=== PATIENT | male | born 1970 | race Caucasian/White ===

== ENCOUNTER 2025-06-12 09:41 | Emergency (ER) | payer OTHER, SELFPAY ==
--- NOTE | ~2025-06-12 | XR_ITS ---
EXAMINATION: XR LUMBOSACRAL SPINE CLINICAL INFORMATION: low back pain COMPARISON: None available. TECHNIQUE: AP and lateral views FINDINGS: Multilevel endplate sclerosis and marginal osteophyte formation throughout the axial skeleton. Levoconvex curvature apex at L2-3. Mild superior endplate compression deformity representing 20% volume loss in the lower thoracic and upper lumbar spine. No acute or equal disruption. No gross malalignment. No lytic or blastic lesions. Facet joint hypertrophy at L4-5 and L5-S1 levels. Vascular calcifications, aorta. XR/XR lumbar spine 2-3V IMPRESSION: Multilevel thoracolumbar spondylosis without acute fracture or gross listhesis. Atherosclerosis disease, aorta. Levoconvex scoliosis versus patient's posture. Electronically signed by: Francesco Medellin MD 06/12/2025 10:28 AM EDT
--- NOTE | ~2025-06-12 | XR_ITS ---
EXAMINATION: XR FOOT, RIGHT CLINICAL INFORMATION: pain, ulcer COMPARISON: None available. TECHNIQUE: AP, lateral, and oblique views of the right foot. FINDINGS: No acute cortical disruption or malalignment. No lytic or blastic lesions. No osteolysis. No subcutaneous emphysema. No metallic or radiopaque foreign body. No joint effusion.. XR/XR foot RT min 3V IMPRESSION: No acute fracture or dislocation. No osteomyelitis based upon x-ray. Electronically signed by: Francesco Medellin MD 06/12/2025 10:29 AM EDT
[2025-06-12 09:54] VITALS: BP 157/75; BP 90/60; PULSE 84; RESP 17; TEMP 36.6; O2SAT 97; BMI 24.7
[2025-06-12 09:58] VITALS: BP 157/75; PULSE 84; RESP 17; TEMP 36.6; O2SAT 97
--- NOTE | 2025-06-12 10:26 | ED.GENADULT ---
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 he comes in after being found walking around [employer] parking lots. PD felt he was shaking. He states he is here due to having to tape his toes to protect them. He has no fevers, he denies ETOH or drug use. He c/o bilateral burning feet to the toes as he walks a lot. He states he has a place to live in [place] and he has access to his medications. He has chronic low back pain but no b/b incontinence and no saddle anesthesia. He states he needs VNA and to see wound care. I told him he should not be taping his toes or skin. All of this has been going on since April complaint: feet pain Onset (ago): month(s) (3) Location: left, right and lower extremity Radiation: non-radiation Severity: mild Quality: burning Pain Consistency: intermittent Relieving factors: none Exacerbating factors: movement Associated symptoms: rash Treatments prior to arrival: none Related Data Allergies Allergy/AdvReac Type Severity Reaction Status Date / Time No Known Allergies Allergy Verified 06/12/25 09:56 Review of Systems Review of Systems: Constitutional : No Fever, No Chills ENT/Mouth : No sore throat, No Rhinorrhea Eyes: No Eye Pain, No Swelling, No Redness Cardiovascular : No Chest Pain, No SOB Respiratory : No Cough, No Sputum Gastrointestinal : No Nausea, No Vomiting, No Diarrhea, No abdominal Pain Genitourinary : No Dysuria, No Hematuria Musculoskeletal : No joint pain, No Myalgias, No Joint Swelling, pos back pain Skin : No Skin Lesions, positive skin rash Neuro : No Weakness, No Numbness, No Headache All other systems reviewed and are negative [facility] Past Medical History Attestation statement: The following information was validated with the patient. Source: old records reviewed Medical History Diabetes HLD (hyperlipidemia) HTN (hypertension) Social History Social History (Updated 06/12/25 @ 11:00 by Nettie Allred DO) Patient Tobacco Use Status: Current everyday Tobacco user Smoked in Last 30 Days: Yes Use of substances other than those prescribed or required for medical reasons: No Advance Directives: Yes Advance Directives Information Provided: Yes Advance Directives on File: No Do you have a plan to hurt others: No Plan Physical Exam ED Vital Signs: Vital Signs - 24 hr 06/12/25 09:54 06/12/25 09:58 06/12/25 12:10 Temperature 97.9 F 97.9 F 98.3 F Pulse Rate 84 84 71 Respiratory Rate 17 17 16 Blood Pressure 157/75 H 157/75 H 132/78 Pulse Oximetry 97 97 97 Oxygen Delivery Method Room Air Room Air Room Air BMI result Body Mass Index 24.7 Appearance: Alert. Oriented X3. No acute distress. Eyes: Pupils equal, round and reactive to light. ENT: Pharynx normal. Neck: Normal inspection. Neck supple. CVS: Normal heart rate and rhythm. Pulses normal. Respiratory: No respiratory distress. Breath sounds normal. Abdomen: Soft and nontender. Skin: Skin warm and dry. Normal skin color. Normal skin turgor. Extremities: No lower extremity edema. toes are only red where tape areas were there is no cellulitis, nails are thickened but no signs of abscess or cellulitis, there are pressure ulcers but no open wounds on both heels, NV intact Neuro: Oriented X 3. No motor deficit. No sensory deficit. 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 He is NV intact, I am going to obtain xrays and basic labs but this seems more social issue. Will involve CM once patient is cleared Differential Diagnosis Differential Diagnoses: The differential diagnosis associated with the presentation includes poor social support, neuropathy, onychomycosis, skin irritation Admission/Observation Consideration of admission/observation: Escalation of care including admission/observation considered does not need inpatient admission ESR and CRP mildly elevated no overt cellulitis will involve CM for VNA at home now refusing VNA - CM letting [facility] know about his decline of services Consult Healthcare Provider Management of the patient was discussed with: Sodium Chlorite Operator Lab Data MDM Lab Attestation statement: I reviewed the patient's lab results. 06/12/25 10:57 06/12/25 10:57 Labs: Lab Results 06/12/25 06/12/25 Range/Units 10:57 12:28 WBC 5.6 (4.8-10.8) X10*3/uL RBC 3.78 L (4.60-5.80) X10*6/uL Hgb 11.8 L (14.0-18.0) g/dl Hct 33.1 L (42.0-52.0) % MCV 87.6 (80.0-98.0) fL MCH 31.2 (27.0-33.0) pg MCHC 35.6 (31.0-36.0) g/dl RDW 12.7 (11.0-16.0) % Plt Count 222 (160-400) X10*3/uL MPV 8.5 L (9.4-12.4) fL Immature Gran % (Auto) 0.2 (0.0-0.4) % Neut % (Auto) 61.1 (45-73) % Lymph % (Auto) 23.4 (20-40) % [place] % (Auto) 13.7 H (2-11) % Eos % (Auto) 0.9 (0-4) % Baso % (Auto) 0.7 (0-2) % Lymph # (Auto) 1.3 (1.2-4.9) X10*3/uL [place] # (Auto) 0.8 (0.1-1.2) X10*3/uL Eos # (Auto) 0.1 (0.0-0.4) X10*3/uL Baso # (Auto) 0.0 (0.0-0.2) X10*3/uL Abs Immat Gran (auto) 0.01 (0.00-0.03) X10*3/uL Absolute Neuts (auto) 3.4 (2.0-8.3) x10*3/uL Absolute Nucleated RBC 0.000 (0.0-0.012) X10*3/uL Nucleated RBC % (auto) 0.0 (0.0-0.2) /100WBC ESR 16 H (0-15) MM/HR Sodium 133 L (135-145) mmol/L Potassium 4.5 (3.3-5.1) mmol/L Chloride 104 (96-108) mmol/L Carbon Dioxide 23 (22-29) mmol/L Anion Gap 11 L (12-20) BUN 11 (9-16) mg/dL Creatinine 0.82 (0.5-1.4) mg/dL Estim Creat Clear Calc 118.3 Estimated GFR > 60 Random Glucose 85 (60-115) mg/dL Calcium 9.5 (8.4-10.2) mg/dL Magnesium 1.9 (1.6-2.6) mg/dL Total Bilirubin 0.6 (0.0-1.0) mg/dL Direct Bilirubin 0.2 (0.0-0.5) mg/dL AST 21 (5-37) U/L ALT 10 (0-40) U/L Alkaline Phosphatase 18 L (39-117) U/L C-Reactive Protein 1.70 H (< or = 0.50) mg/dL Total Protein 6.6 (6.5-8.0) g/dL Albumin 4.2 (3.5-5.0) g/dL Lipase 16 (8-78) U/L Urine Color Yellow Urine Appearance Clear Urine pH 6.5 (5.0-9.0) Ur Specific [place] 1.015 (1.005-1.025) Urine Protein Negative (Neg-Trace) mg/dL Urine Glucose (UA) Negative (Negative) mg/dL Urine Ketones Trace (Negative) mg/dL Urine Blood Small (1+) H (Negative) Urine Nitrite Negative (Negative) Ur Leukocyte Esterase Negative (Negative) Urine RBC 11-20 H (0-2) /HPF Urine WBC 0-5 (0-5) /HPF Ur Squamous Epith Cells 0-2 (0-2) /HPF Urine Bacteria None Seen (None Seen) Hyaline Casts 0-2 (0-2) /LPF Urine Opiates Screen Not Detected (Not Detect) Ur Buprenorphine Scrn Not Detected (Not Detect) ng/mL Ur Oxycodone Screen Not Detected (Not Detect) ng/mL Urine Methadone Screen Not Detected (Not Detect) ng/mL Urine Fentanyl Screen Not Detected (Not Detect) Ur Barbiturates Screen Not Detected (Not Detect) Valproic Acid 85.8 (50.0-100.0) mcg/mL Ur Phencyclidine Scrn Not Detected (Not Detect) Ur Amphetamines Screen Not Detected (Not Detect) U Benzodiazepines Scrn Not Detected (Not Detect) Urine Cocaine Screen Not Detected (Not Detect) U Marijuana (THC) Screen Not Detected (Not Detect) Ethyl Alcohol 11 mg/dL Independent Interpretation I performed an independent interpretation of an: Plain X-Ray (no fx, no osteo) Radiology Impression Discussion of test interpretation with radiology: I have reviewed the radiologist's reading. Independent Historian Clinical information obtained from an independent historian. History obtained from or confirmed by: EMS External Record Review External record reviewed: Outpatient record Social Determinants Patient?s care significantly limited by Social Determinants of Health including: Problems related to primary support group Discharge Plan Discharge Clinical Impression: Onychomycosis, Pain around toenail Low back pain Qualifiers: Chronicity: chronic Back pain laterality: bilateral Sciatica presence: without sciatica Qualified Code(s): M54.50 - Low back pain, unspecified Patient Disposition: Home, Self-Care Instructions: Back Pain (ED) Additional Instructions: xrays show no broken bones but you do have disc disease in your back your labs were reassuring you should follow up with our wound care center for outpatient care of your feet avoid taping them Referrals: [facility] [place] Wound Care Management [Provider Group] Referral Note: call to schedule Print Language: Spanish
[2025-06-12 11:03] LABS: MANUAL DIFF FLAG NO
[2025-06-12 11:06] LABS: Hematocrit 33.1 % (42.0-52.0); Hemoglobin 11.8 g/dl (14.0-18.0); Imm Gran Abs Auto 0.01 X10*3/uL (0.00-0.03); Imm Gran Pct Auto 0.2 % (0.0-0.4); Lymphocytes Absolute Auto 1.3 X10*3/uL (1.2-4.9); Mean Corpuscular HGB Conc 35.6 g/dl (31.0-36.0); Mean Corpuscular Hemoglobin 31.2 pg (27.0-33.0); Mean Corpuscular Volume 87.6 fL (80.0-98.0); NRBC Abs Auto 0.000 X10*3/uL (0.0-0.012); NRBC Pct Auto 0.0 /100WBC (0.0-0.2); Platelet Count 222 X10*3/uL (160-400); Red Blood Count 3.78 X10*6/uL (4.60-5.80); White Blood Count 5.6 X10*3/uL (4.8-10.8)
[2025-06-12 11:25] LABS: Alanine Aminotransferase 10 U/L (0-40); Albumin Level 4.2 g/dL (3.5-5.0); Alkaline Phosphatase 18 U/L (39-117); Anion Gap 11 (12-20); Aspartate Amino Transferase 21 U/L (5-37); Blood Urea Nitrogen 11 mg/dL (9-16); Calcium 9.5 mg/dL (8.4-10.2); Carbon Dioxide 23 mmol/L (22-29); Chloride 104 mmol/L (96-108); Creatinine Clr Calc Pharmacy 118.3; Estimated Glomerular Filt Rate > 60; Lipase 16 U/L (8-78); Magnesium 1.9 mg/dL (1.6-2.6); Potassium 4.5 mmol/L (3.3-5.1); Sodium 133 mmol/L (135-145); Total Protein 6.6 g/dL (6.5-8.0)
[2025-06-12 12:10] VITALS: BP 132/78; PULSE 71; RESP 16; TEMP 36.8; O2SAT 97
--- OUTSIDE RECORDS SUMMARY | 2025-06-12 12:11 | XMS_ITS | Clinical Summary ---
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 Active lancets lancets Test blood sugars twice daily Pt has Settlestyle lite machine 3 Active lancets lancets USE DIRECTED EVERY DAY 4 Active OneTouch Ultra Test test strip USE DIRECTED EVERY DAY 4 Active OneTouch Ultra Test test strip USE DIRECTED EVERY DAY 4 Active acetaminophen (TYLENOL) 500 mg capsule Take 2 Capsules by mouth at bedtime. 4 Active azelastine (ASTELIN) 137 mcg (0.1 %) nasal spray USE 2 SPRAYS IN EACH NOSTRIL TWICE DAILY DIRECTED 4 Active cyclobenzaprine (FLEXERIL) 10 mg tablet Take 1 Tablet by mouth 3 times daily as needed for Muscle spasms for up to 7 days. 4 Active diclofenac (VOLTAREN) 1 % topical gel Apply 4 g topically 4 times daily as needed for Other (arthritis pain). 2 Active divalproex (DEPAKOTE) [address] tablet Take 500 mg by mouth 2 times daily. Active naproxen (NAPROSYN) 500 mg tablet Take 1 Tablet by mouth 2 times daily (with meals) for 10 days. 4 Active QUEtiapine (SEROquel) 300 mg tablet Take 2 Tabs by mouth at bedtime. 6 Active OneTouch Ultra Test test strip USE DIRECTED EVERY DAY 100 strip 1 4 Active lancets (OneTouch Delica Plus Lancet) 33 gauge USE DIRECTED EVERY DAY 100 each 1 5 Active fluticasone propionate (FLONASE) 50 mcg/actuation nasal spray SHAKE LIQUID AND USE 2 SPRAYS IN EACH NOSTRIL EVERY DAY 48 g 3 5 Active simvastatin (ZOCOR) 20 mg tablet TAKE 1 TABLET BY MOUTH AT BEDTIME 90 tablet 1 5 Active lisinopriL (PRINIVIL,ZESTR [place]) 10 mg tablet TAKE 1 TABLET BY MOUTH DAILY 90 tablet 1 5 Active levothyroxine (SYNTHROID, LEVOTHROID) 112 mcg tablet TAKE 1 TABLET BY MOUTH DAILY 90 tablet 1 5 Active albuterol HFA (PROAIR HFA ; PROVENTIL HFA ; VENTOLIN HFA) 90 mcg/actuation inhaler Inhale 2 puffs by mouth every 6 (six) hours if needed for wheezing. 6.7 g 3 5 Active OneTouch Ultra2 Meter misc USE TO TEST BLOOD SUGAR ONCE DAILY 1 each 11 5 Active metFORMIN (GLUCOPHAGE) 500 mg tablet TAKE 1 TABLET BY MOUTH DAILY WITH BREAKFAST 90 tablet 5 Active Active Problems Problem Noted Date Diagnosed Date Other specified anemias 11/06/2022 Bilateral hip joint arthritis 08/28/2022 Thoracic arthritis 08/28/2022 Hypertension 11/26/2020 Type 2 diabetes mellitus ([facility] V24, [facility] V 28) 11/26/2020 Emphysema with chronic bronc hitis ([facility] V24, [facility] V28) 05/25/2011 LOC (loss of consciousness) ([facility] V24, [facility] V28) 05/06/2011 Overview (09/14/2024): Was seen by Diogenes for neuro that diagnosed him with probable syncope. He does not think that the patient has Sz. Schizoaffective disorder ([facility] V24, [facility] V 28) 05/06/2011 Lyme disease 03/19/2011 Overview (09/14/2024): Was treated with doxycycline 100 mg b.i.d. For 30 days, January 2011 Lung mass 03/13/2011 Overview (09/14/2024): PET was negative on 03/2011 High cholesterol 06/15/2008 Bipolar affective ([facility] V24, [facility] V28) Overview (09/14/2024): As of 12/2010 that patient is follow with Dr Paulson and he will take care of his meds including Depakote and Seroquel. Hypothyroidism 05/25/2008 Tobacco use disorder 05/25/2008 Encounters Date Type Department Care Team Description 04/30/2025 12:04 PM EDT - 04/30/2025 6:18 PM EDT Emergency [facility] Emergency [address] [place] [address] Shaheen Dao MD Discharge Disposition: ED Dismiss - Never Arrived from Last 3 Months Immunizations Name Administration Dates Next Due H1N1 Inj Preservative Free 09/25/2009 Influenza Quadrivalent, 0.5m l, preservative free (Fluarix; FluLaval; Fluzone) ages 6mo and older (Afluria) 3yo and older 07/24/2023,06/03/2020,06/11/2018 Influenza trivalent, 0.5mL, preservative free (Fluarix; FluLaval; Fluzone) ages 6mo and older (Afluria) 3 years and older 06/08/2024,06/21/2021,05/16/2017,06/13,06/09/2015,05/11/2014,08/07/2013 ,07/14/2012,09/07/2011,07/31/2010,09/10,07/10/2008 Influenza trivalent, MDCK, 0 .5mL, preservative free (Flucelvax) 6mo and older 06/07/2025 Influenza, Unspecified 06/22/2022,2018,06/11/2018,05/11 Influenza, injectable, quadr ivalent, preservative free, pediatric 06/22/2022 Moderna SARS-CoV-2 COVID-19, mRNA, LNP-S, preservative free 09/12/2021,03/08/2021,02/08/2021 Pneumococcal polysaccharide 23 valent (Pneumovax 23) 2yo and older 01/28/2010 Pneumococcal, Unspecified 05/11/2014 RSV, bivalent, protein subun it RSVpreF, 0.5mL, Preservative Free (ABRYSVO) 60yo and older or 32 through 36 wks of 06/07/2025 Tdap Tetanus diptheria acell ular pertussis (Boostrix; Adacel) 7yo and older 07/03/2019,03/06/2009 Zoster recombinant (Shingrix ) 19yo and older 12/25/2024,10/27/2024 Surgical History Surgery Date Site/Laterality Comments HERNIA REPAIR Left PROCEDURE: HISTORICAL HERNIA REPAIR/ING; COMMENT: 1990 Medical History Medical History Date Comments Lyme arthritis of knee ([facility] V24, [facility] V28) 01/31/2011 DX:Lyme arthritis of knee ([facility]) Bipolar affective ([facility] V 24, [facility] V28) 05/25/2008 DX:Bipolar affective (HCC) Emphysema with chronic bronc hitis ([facility] V24, [facility] V28) 05/25/2011 DX:Emphysema with chronic bronchitis ([facility]) High cholesterol 06/15/2008 DX:High cholest ashleigh Hypothyroidism 05/25/2008 DX:Hypothyroidis m LOC (loss of consciousness) ([facility] V24, [facility] V28) 05/06/2011 DX:LOC (loss of consciousnes s) ([facility]) Historical Medical DX 03/13/2011 DX:Pulmona ry nodule Schizoaffective disorder ( [facility] V24, [facility] V28) 05/06/2011 DX:Schizoaffective disorder ([facility]) Tobacco use disorder 05/25/2008 DX:Tobacco use disorder Hypertension 11/26/2020 DX:Hypertension Type 2 diabetes mellitus ( [facility] V24, [facility] V28) 11/26/2020 DX:Type 2 diabetes mellitus (HCC) Family History Medical History Relation Name Comments Other: seizure d/o Brother 1 cause of undetermined COPD Brother 2 bacterial infec tion lungs Throat cancer Father smoker Asthma Mother COPD Mother respiratory iss ues Other: psychiatric Mother Relation Name Status Comments Brother 1 (Age 50) SZ Brother 2 Alive SZ Brother 3 Alive Brother 4 Alive Brother 5 Alive Brother 6 Alive Father (Age 59) SZ Mother (Age 62) Social History Tobacco Use Types Packs/Day Years Used Date Smoking Tobacco: Every Day Cigarettes 1 43.3 Started: 03/04/1982 Smokeless Tobacco: Never Tobacco Cessation:Ready to Q uit: Not Asked; Counseling Given: Not Answered Alcohol Use Standard Drinks/Week Comments Yes 0 (1 standard drink = 0.6 oz pur e alcohol) Housing Instability Answer Date Recorde d Are you worried that in the next 2 months you may not have stable housing? No 11/15/2024 Food Access & Nutrition Answer Date Rec orded Do you have access to a vari ety of food including fruits and vegetables? Yes 11/15/2024 Health Literacy Answer Date Recorded How often do you need to hav e someone help you when you read instructions, pamphlets, or other written material from your doctor or pharmacy? Never 11/15/2024 Caregiver: How often do you need to have someone help you when you read instructions, pamphlets, or other written material from your doctor or pharmacy? Not on file 11/15/2024 Financial Risk Answer Date Recorded How hard is it for you to pa y for the very basics like food, housing, medical care, and air conditioning / heating? Not very hard 11/15/2024 Transportation Answer Date Recorded Has the lack of transportati on kept you from meetings, work, or from getting things needed for daily living? No Has the lack of transportati on kept you from medical appointments or from getting medications? No 11/15/2024 Social Isolation Answer Date Recorded How often do you feel lonely or isolated from th ose around you? Never 11/15/2024 Food Risk Answer Date Recorded Within the past 12 months we worried whether our food would run out before we got money to buy more. Never true 11/15/2024 Within the past 12 months th e food we bought just didn't last and we didn't have money to get more. Never true 11/15/2024 Dependent Care Answer Date Recorded Do you need help finding or paying for care for your loved ones. For example, housekeeper child care or elderly care for an older adult? No 11/15/2024 Education Answer Date Recorded Do you think completing more education or training, like finishing a GED, going to college, or learning a trade, would be helpful for you? No 11/15/2024 Employment and Income Answer Date Recor ded During the last four weeks, have you been actively looking for work? No 11/15/2024 Living Situation Answer Date Recorded What is your living situation? 0 11/15/2024 Sex and Gender Information Value Date Recorded Sex Assigned at Male 01/11/2025 1:49 PM EDT Legal Sex Male 4:08 PM EST Gender Identity Male 01/11/2025 1:49 PM EDT Sexual Orientation Straight 01/11/2025 1: 49 PM EDT Obstetrics History Last Filed Vital Signs Vital Sign Reading Time Taken Comments Blood Pressure 129/76 04/30/2025 12:22 PM EDT Pulse 90 04/30/2025 12:22 PM EDT Temperature 36.4 C (97.5 F) 04/30/2025 12:22 PM EDT Respiratory Rate 18 04/30/2025 12:22 PM EDT Oxygen Saturation 97% 04/30/2025 12:22 PM EDT Inhaled Oxygen Concentration - - Weight 108 kg (237 lb) 04/30/2025 12:22 PM EDT Height 188 cm (6' 2 ) 04/30/2025 12:22 PM EDT Body Mass Index 30.43 04/30/2025 12:22 PM EDT Plan of Treatment Upcoming Encounters Date Type Department Care Team (Late st Contact Info) Description 06/18/2025 3:00 PM EDT Office Visit Adult Medicine [facility] [address], [place] [phone] Yu Carmen PA [address], [place] Health Maintenance Due Date Last Done Comments Diabetes: Annual Foot Exam 1979 Hepatitis B Vaccines (1 of 3 - 19+ 3-dose series) 1988 Pneumococcal Vaccine: 50+ Years (2 of 2 - PCV) 05/11/2015 05/11/2014, 01/28/2010 Colorectal Cancer Screening: Stool Based Tests (FOBT/FIT) 05/31/2025 05/31/2024 Social Influencers of Health Screening 11/15/2025 11/15/2024 Diabetes: Annual Retina Eye Exam 11/22/2025 11/22/2024 Diabetes: Blood Sugar Control Test (HGBA1C) 11/25/2025 05/25/2025, 12/05/2024, 05/19/2024, Additional history exists Lung Cancer Screening (Low Dose CT) 01/11/2026 01/11/2025 Diabetes: Annual Urine Albumin-Creatinine Ratio (uACR) 05/25/2026 05/25/2025, 12/05/2024, 05/19/2024 Diabetes: Annual GFR (Glomerular Filtration Rate) 05/25/2026 05/25/2025, 04/30/2025, 12/15/2024, Additional history exists Hypertension/CHF/CAD Annual BMP Blood Test 05/25/2026 05/25/2025, 04/30/2025, 12/15/2024, Additional history exists DTaP,Tdap,and Td Vaccines (3 - Td or Tdap) 07/03/2029 07/03/2019, 03/06/2009 Cholesterol Screening (Lipid Panel) 05/25/2030 05/25/2025, 12/15/2024, 12/05/2024, Additional history exists Colorectal Cancer Screening: Colonoscopy Discontinued 09/14/2019 Hepatitis C Screening Completed 12/29/2022 COVID-19 Vaccine Completed 06/08/2024, , 06/22/2022, Additional history exists Depression Screening Completed 11/15/2024 HIV Screening Completed 12/05/2024 Zoster Vaccines Completed 12/25/2024, 10/27/2024 Influenza Vaccine Completed 06/07/2025, , 07/24/2023, Additional history exists HIB Vaccines Aged Out No longer eligi ble based on patient's age to complete this topic HPV Vaccines Aged Out No longer eligi ble based on patient's age to complete this topic Hepatitis A Vaccines Aged Out No long er eligible based on patient's age to complete this topic IPV Vaccines Aged Out No longer eligi ble based on patient's age to complete this topic MMR Vaccines Aged Out No longer eligi ble based on patient's age to complete this topic Meningococcal ACWY Vaccine Aged Out N o longer eligible based on patient's age to complete this topic Meningococcal B Vaccine Aged Out No l onger eligible based on patient's age to complete this topic RSV Immunization Patients Under 20 months Aged Out No longer eligible based on patient's age to complete this topic Varicella Vaccines Aged Out No longer eligible based on patient's age to complete this topic Procedures Procedure Name Priority Date/Time Associated Diagnosis Comments CBC WITH AUTO DIFFERENTIAL Routine 05/25/2025 9:27 AM EDT Drug therapy Primary hypertension High cholesterol Hypothyroidism, unspecified type Type 2 diabetes mellitus without complication, without long-term current use of insulin ([facility] V24, [facility] V28) MICROALBUMIN CREATININE URINE RATIO Routine 05/25/2025 9:27 AM EDT Right arm numbness Injury of chest wall, subsequent encounter High cholesterol Primary hypertension Hypothyroidism, unspecified type Type 2 diabetes mellitus without complication, without long-term current use of insulin ([facility] V24, [facility] V28) Tobacco use disorder HEMOGLOBIN A1C Routine 05/25/2025 9:27 AM EDT Right arm numbness Injury of chest wall, subsequent encounter High cholesterol Primary hypertension Hypothyroidism, unspecified type Type 2 diabetes mellitus without complication, without long-term current use of insulin ([facility] V24, [facility] V28) Tobacco use disorder THYROID STIMULATING HORMONE WITH REFLEX TO FREE T4 AND FREE T3 Routine 05/25/2025 9:27 AM EDT Right arm numbness Injury of chest wall, subsequent encounter High cholesterol Primary hypertension Hypothyroidism, unspecified type Type 2 diabetes mellitus without complication, without long-term current use of insulin ([facility] V24, [facility] V28) Tobacco use disorder COMPREHENSIVE METABOLIC PANEL Routine 05/25/2025 9:27 AM EDT Drug therapy Primary hypertension High cholesterol Hypothyroidism, unspecified type Type 2 diabetes mellitus without complication, without long-term current use of insulin ([facility] V24, [facility] V28) LIPID PANEL WITH REFLEX TO DIRECT LDL Routine 05/25/2025 9:27 AM EDT Drug therapy Primary hypertension High cholesterol Hypothyroidism, unspecified type Type 2 diabetes mellitus without complication, without long-term current use of insulin ([facility] V24, [facility] V28) CBC AND DIFFERENTIAL Routine 05/25/2025 9:27 AM EDT Drug therapy Primary hypertension High cholesterol Hypothyroidism, unspecified type Type 2 diabetes mellitus without complication, without long-term current use of insulin ([facility] V24, [facility] V28) VALPROIC ACID LEVEL, TOTAL Routine 05/25/2025 9:27 AM EDT Drug therapy Primary hypertension High cholesterol Hypothyroidism, unspecified type Type 2 diabetes mellitus without complication, without long-term current use of insulin ([facility] V24, [facility] V28) ECG ANNOTATED 05/02/2025 ECG 12-LEAD STAT 04/30/2025 1:06 PM EDT CBC WITH AUTO DIFFERENTIAL STAT 04/30/2025 1:03 PM EDT MAGNESIUM STAT 04/30/2025 1:03 PM EDT BASIC METABOLIC PANEL STAT 04/30/2025 1:03 PM EDT CBC AND DIFFERENTIAL STAT 04/30/2025 1:[address] LUNG SCREENING Routine 01/11/2025 2:1 6 PM EDT Encounter for screening for lung cancer Cigarette smoker HIV 1, 2 ANTIBODY, P24 ANTIGEN WITH REFLEX TO DIFFERENTIATION Routine 12/05/2024 12:30 PM EST Right arm numbness Injury of chest wall, subsequent encounter High cholesterol Primary hypertension Hypothyroidism, unspecified type Type 2 diabetes mellitus without complication, without long-term current use of insulin ([facility] V24, [facility] V28) Tobacco use disorder HEPATITIS C SCREENING Routine 12/29/2022 COLONOSCOPY Routine 09/14/2019 from Last 3 Months or Most Recently Relevant to Health Maintenance Results * Thyroid stimulating hormone with reflex to free t4 and free t3 (05/25/2025 9:27 AM EDT) Pathologist [facility] TSH 0.52 0.40 - 4.00 mcIU/mL LAB CHEMISTRY METHOD 05/25/2025 2:22 PM EDT [facility] Blood Venous blood specimen / Unknown Venipuncture / Unknown 05/25/2025 9:27 AM EDT 05/25/2025 9:27 AM EDT Acosta BARBER LAB BLOOD ORDERABLES Anusha olmedo Result [facility] [address] [place] [address], [place] [phone] * Lipid panel with reflex to direct LDL (05/25/2025 9:27 AM EDT) [facility] Cholesterol 159 0 - 200 mg/dL LAB CHEMISTRY METHOD 05/25/2025 1:11 PM EDT [facility] Triglycerides 145 0 - 150 mg/dL LAB CHEMISTRY METHOD 05/25/2025 1:11 PM EDT [facility] HDL 42 >=40 mg/dL LAB CHEMISTRY METHOD 05/25/2025 1:11 PM EDT [facility] LDL Calculated 88 0 - 100 mg/dL LAB CHEMISTRY METHOD 05/25/2025 1:11 PM EDT [facility] Comment:Estimated LDL Calcul ated using equation: Total cholesterol - HDL cholesterol - (Triglycerides/5) VLDL Cholesterol Kalpesh 29 mg/dL LAB CHEMISTRY METHOD 05/25/2025 1:11 PM EDT [facility] Non HDL Chol. (LDL+VLDL) 117 <145 mg/dL LAB CHEMISTRY METHOD 05/25/2025 1:11 PM EDT [facility] Chol/HDL Ratio 3.8 0.0 - 4.4 LAB CHEMISTRY METHOD 05/25/2025 1:11 PM EDT [facility] Blood Venous blood specimen / Unknown Venipuncture / Unknown 05/25/2025 9:27 AM EDT 05/25/2025 9:27 AM EDT us Wanda Wylie MD LAB BLOOD ORDERABLES Final Resul t [facility] [address] [place] [address], * (ABNORMAL) CBC auto differential (05/25/2025 9:27 AM EDT) Only the most recent of2 resultswithin the time period is included. WBC 6.2 4.8 - 10.8 K/mcL LAB HEMETOLOGY METHOD 05/25/2025 12:18 PM EDT [facility] RBC 4.80 4.50 - 5.50 M/mcL LAB HEMETOLOGY METHOD 05/25/2025 12:18 PM EDT [facility] Hemoglobin 14.9 13.5 - 17.5 g/dL LAB HEMETOLOGY METHOD 05/25/2025 12:18 PM EDT [facility] Hematocrit 42.5 42.0 - 54.0 % LAB HEMETOLOGY METHOD 05/25/2025 12:18 PM EDT [facility] MCV 88.5 79.0 - 98.0 FL LAB HEMETOLOGY METHOD 05/25[facility]2025 [facility] MCH 31.0 27.0 - 32.0 pcg LAB HEMETOLOGY METHOD 05/25/2025 12:18 PM EDT [facility] MCHC 35.1 32.0 - 37.0 g/dL LAB HEMETOLOGY METHOD 05/25/2025 12:18 PM EDT [facility] RDW 12.5 11.0 - 15.0 % LAB HEMETOLOGY METHOD 05/25/2025 12:[facility] Platelets 348 130 - 400 K/mcL LAB HEMETOLOGY METHOD 05/25/2025 12:[facility] MPV 9.2 7.0 - 11.0 FL LAB HEMETOLOGY METHOD 05/25/2025 12:[facility] NRBC 0.0 <1.0 % LAB HEMETOLOGY METHOD 05/25/2025 12:[facility] NRBC Absolute 0.00 <0.10 K/mcL LAB HEMETOLOGY METHOD 05/25/2025 12:18 PM [facility] Neutrophils Relative 44.7 % LAB HEMETOLOGY METHOD 05/25/2025 12:18 PM [facility] Lymphocytes Relative 36.6 % LAB HEMETOLOGY METHOD 05/25/2025 12:18 PM [facility] Monocytes Relative 16.5 % LAB HEMETOLOGY METHOD 05/25/2025 12:18 PM [facility] Eosinophils Relative 1.1 % LAB HEMETOLOGY METHOD 05/25/2025 12:18 PM [facility] Basophils Relative 0.8 % LAB HEMETOLOGY METHOD 05/25/2025 12:18 PM [facility] Immature Granulocytes Relative 0.3 % LAB HEMETOLOGY METHOD 05/25/2025 12:18 PM [facility] Neutrophils Absolute 2.76 1.50 - 7.00 K/mcL LAB HEMETOLOGY METHOD 05/25/2025 12:18 PM [facility] Lymphocytes Absolute 2.26 1.00 - 5.00 K/mcL LAB HEMETOLOGY METHOD 05/25/2025 12:18 PM EDT [facility] Monocytes Absolute 1.02(H) 0.20 - 1.00 K/mcL LAB HEMETOLOGY METHOD 05/25/2025 12:18 PM EDT [facility] Eosinophils Absolute 0.07 0.00 - 0.50 K/[facility] LAB HEMETOLOGY METHOD 05/25/2025 12:18 PM EDT [facility] Basophils Absolute 0.05 0.00 - 0.20 K/[facility] LAB HEMETOLOGY METHOD 05/25/2025 12:18 PM EDT [facility] Immature Granulocytes Absolute 0.02 0.00 - 0.03 K/[facility] HEMETOLOGY METHOD 05/25/2025 12:18 PM EDT [facility] Blood Venous blood specimen / Unknown Venipuncture / Unknown 05/25/2025 9:27 AM EDT 05/25/2025 9:27 AM EDT us Wanda Wylie MD LAB BLOOD ORDERABLES Final Resul t [facility] [address] [place] [address], * (ABNORMAL) Microalbumin creatinine urine ratio (05/25/2025 9:27 AM EDT) Creatinine, Urine 194.0 mg/dL LAB CHEMISTRY METHOD 05/25/2025 2:19 PM EDT [facility] Microalb, Ur 219.0(H) 0.0 - 29.0 mg/L LAB CHEMISTRY METHOD 05/25/2025 2:19 PM EDT [facility] Microalb/Crea t Ratio 113(H) <30 mg/g creat LAB CHEMISTRY METHOD 05/25/2025 2:19 PM EDT [facility] Urine Urine specimen obtained by clean catch procedure / Unknown Non-blood Collection / Unknown 05/25/2025 9:27 AM EDT 05/25/2025 9:27 AM EDT Acosta BARBER LAB URINE ORDERABLES Anusha l Result Performing Organization Address [facility]/ZIP Co de Phone Number [facility] [address] [place] [address], [place] [phone] * Hemoglobin A1c (05/25/2025 9:27 AM EDT) Hemoglobin A1C 5.9 <6.5 % LAB CHEMISTRY METHOD 05/25/2025 1:38 PM EDT [facility] Mean Bld Glu Estim. 123 mg/dL LAB CHEMISTRY METHOD 05/25/2025 1:38 PM EDT [facility] Blood Venous blood specimen / Unknown Venipuncture / Unknown 05/25/2025 9:27 AM EDT 05/25/2025 9:27 AM EDT Acosta BARBER LAB BLOOD ORDERABLES Anusha l Result Performing Organization Address [facility] de Phone Number [facility] [address] [place] [address], [place] [phone] * Valproic acid level, total (05/25/2025 9:27 AM EDT) Pathologist [facility] Valproic Acid, Total 72 50 - 100 mcg/mL LAB CHEMISTRY METHOD 05/25/2025 1:11 PM EDT [facility] Blood Venous blood specimen / Unknown Venipuncture / Unknown 05/25/2025 9:27 AM EDT 05/25/2025 9:27 AM EDT Wanda Wylie MD LAB BLOOD ORDERABLES Final Resul t [facility] [address] [place] [address], [place] [phone] * (ABNORMAL) Comprehensive metabolic panel (05/25/2025 9:27 AM EDT) Sodium 133 133 - 145 mmol/L LAB CHEMISTRY METHOD 05/25/2025 1:11 PM EDT [facility] Potassium 4.5 3.5 - 5.5 mmol/L LAB CHEMISTRY METHOD 05/25/2025 1:11 PM [facility] Chloride 97 96 - 110 mmol/L LAB CHEMISTRY METHOD 05/25/2025 1:11 PM [facility] CO2 27 21 - 32 mmol/L LAB CHEMISTRY METHOD 05/25/2025 1:11 PM [facility] Anion Gap 9 3 - 11 LAB CHEMISTRY METHOD 05/25/2025 1:11 PM [facility] Glucose 87 70 - 100 mg/dL LAB CHEMISTRY METHOD 05/25/2025 1:11 PM [facility] BUN 11 5 - 25 mg/dL LAB CHEMISTRY METHOD 05/25/2025 1:11 PM [facility] Creatinine 0.98 0.70 - 1.30 mg/dL LAB CHEMISTRY METHOD 05/25/2025 1:11 PM [facility] eGFR 91 >=60 mL/min/1. 73m2 LAB CHEMISTRY METHOD 05/25/2025 1:11 PM [facility] Comment:Calculation based on the Chronic Kidney Disease Epidemiology Collaboration (CKD-EPI) equation refit without adjustment for race. BUN/Creatinine Ratio 11.2 LAB CHEMISTRY METHOD 05/25/2025 1:11 PM [facility] Calcium 9.9 8.5 - 10.5 mg/dL LAB CHEMISTRY METHOD 05/25/2025 1:11 PM [facility] AST (SGOT) 18 10 - 42 unit/L LAB CHEMISTRY METHOD 05/25/2025 1:11 PM EDT [facility] ALT (SGPT) 15 10 - 60 unit/L LAB CHEMISTRY METHOD 05/25/2025 1:11 PM EDT [facility] Alkaline Phosphatase 28(L) 42 - 121 unit/L LAB CHEMISTRY METHOD 05/25/2025 1:11 PM EDT [facility] Total Protein 7.6 6.0 - 8.0 g/dL LAB CHEMISTRY METHOD 05/25/2025 1:11 PM EDT [facility] Albumin 4.2 3.2 - 5.0 g/dL LAB CHEMISTRY METHOD 05/25/2025 1:11 PM EDT [facility] Total Bilirubin 0.6 0.0 - 1.4 mg/dL LAB CHEMISTRY METHOD 05/25/2025 1:11 PM EDT [facility] Blood Venous blood specimen / Unknown Venipuncture / Unknown 05/25/2025 9:27 AM EDT 05/25/2025 9:27 AM EDT Wanda Wylie MD LAB BLOOD ORDERABLES Final Resul t [facility] [address] [place] [address], * ECG-Annotated (05/02/2025) us Provider Onbase ECG ORDERABLES Final Result * ECG 12 lead (04/30/2025 1:06 PM EDT) Ventricular Rate ECG 79 BPM GEMUSE Atrial Rate 79 BPM GEMUSE P-R Interval 126 ms GEMUSE QRS Duration 96 ms GEMUSE Q-T Interval 388 ms GEMUSE QTc 444 ms GEMUSE P Wave [place] 21 degrees GEMUSE R [place] -7 degrees GEMUSE T [place] 42 degrees GEMUSE ECG Interpretation Normal sinus rhythm Normal ECG No previous ECGs available Confirmed by Garret GARCIA JAMES ([id number]) on 04/30/2025 2:39:50 PM GEMUSE 04/30/2025 1:06 PM EDT 04/30/2025 2:39 PM EDT us Shaheen Dao MD ECG ORDERABLES Final Result Performing Organization Address [facility] de Phone Number GEMUSE * Magnesium (04/30/2025 1:03 PM EDT) [facility] Magnesium 2.0 1.9 - 2.6 mg/dL LAB CHEMISTRY METHOD 04/30/2025 2:35 PM EDT [facility] Blood Venous blood specimen / Unknown Venipuncture / Unknown 04/30/2025 1:03 PM EDT 04/30/2025 2:35 PM EDT Shaheen Dao MD LAB BLOOD ORDERABLES Final Resul t Performing Organization Address [facility] de Phone Number [facility] [address] [place] [address], [place] [phone] * Basic metabolic panel (04/30/2025 1:03 PM EDT) [facility] Sodium 137 133 - 145 mmol/L LAB CHEMISTRY METHOD 04/30/2025 2:35 PM EDT [facility] Potassium 4.0 3.5 - 5.5 mmol/L LAB CHEMISTRY METHOD 04/30/2025 2:35 PM EDT [facility] Chloride 105 96 - 110 mmol/L LAB CHEMISTRY METHOD 04/30/2025 2:35 PM EDT [facility] CO2 25 21 - 32 mmol/L LAB CHEMISTRY METHOD 04/30/2025 2:35 PM EDT [facility] Anion Gap 7 3 - 11 LAB CHEMISTRY METHOD 04/30/2025 2:35 PM EDT [facility] Glucose 83 70 - 100 mg/dL LAB CHEMISTRY METHOD 04/30/2025 2:35 PM EDT [facility] BUN 17 5 - 25 mg/dL LAB CHEMISTRY METHOD 04/30/2025 2:35 PM EDT [facility] Creatinine 0.96 0.70 - 1.30 mg/dL LAB CHEMISTRY METHOD 04/30/2025 2:35 PM EDT [facility] eGFR 93 >=60 mL/min/1. 73m2 LAB CHEMISTRY METHOD 04/30/2025 2:35 PM EDT [facility] Comment:Calculation based on the Chronic Kidney Disease Epidemiology Collaboration (CKD-EPI) equation refit without adjustment for race. BUN/Creatinine Ratio 17.7 LAB CHEMISTRY METHOD 04/30/2025 2:35 PM EDT [facility] Calcium 9.7 8.5 - 10.5 mg/dL LAB CHEMISTRY METHOD 04/30/2025 2:35 PM EDT [facility] Blood Venous blood specimen / Unknown Venipuncture / Unknown 04/30/2025 1:03 PM EDT 04/30/2025 2:35 PM EDT us Shaheen Dao MD LAB BLOOD ORDERABLES Final Resul t [facility] [address] [place] [address], * CT Lung Screening (01/11/2025 2:16 PM EDT) Anatomical Region Laterality Modality Chest Computed Tomogra phy 01/16/2025 11:5 6 AM EDT Impressions 01/16/2025 1:28 PM EDT Lung RADS 1. No suspicious pulmonary nodule. Guidelines recommend repeat low-dose screening CT in 12 months. -------- FINAL REPORT -------- Dictated By: Sravan Wade Dictated Date: 01/16/2025 11:56 ET Assigned Physician: Sravan Wade Reviewed and Electronically Signed By: Sravan Wade Signed Date: 01/16/2025 13:28 ET Workstation ID: [id number] Transcribed By: Self Edit Transcribed Date: 01/16/2025 13:21 ET Narrative 01/16/2025 1:28 PM EDT PROCEDURE: Low-dose CT of the chest without intravenous contrast. TECHNIQUE: Low-dose CT of the chest without intravenous contrast administration. Coronal and sagittal reformats and MIP reconstructions were created. Dose length product: 185 mGy-cm. HISTORY: Lung cancer screening, >=20 pk yr current smoker (Age 50-80y) tobacco Abuse COMPARISON: None. FINDINGS: Lungs/pleura: The central airways are clear and normal in caliber. Bandlike scarring in the lingula. Elongated calcified plaque-like nodule measuring 14 x 6 mm along the right major fissure, series 3 image 76. There are a few calcified granulomas. Centrilobular and paraseptal emphysematous changes at the lung apices. No suspicious nodule or mass. No pleural effusion or pneumothorax. Mediastinum/marques: No mediastinal mass or lymphadenopathy. No appreciable hilar lymphadenopathy on limited noncontrast evaluation. Vasculature: Normal caliber pulmonary arteries. Mild atherosclerotic calcifications of the great vessels. Cardiac: Normal heart size. Mild coronary artery calcification. Chest wall: No axillary or supraclavicular lymphadenopathy. Mild bilateral gynecomastia. Limited abdomen: Unremarkable. Bones: Nondisplaced fractures of the lateral right 3rd and 4th ribs with prominent bony callus formation. Procedure Note Sravan Wade MD - 01/16/2025 PROCEDURE: Low-dose CT of the chest without intravenous contrast. TECHNIQUE: Low-dose CT of the chest without intravenous contrastadministration. Coronal and sagittal reformats and MIP reconstructionswere created. Dose length product: 185 mGy-cm. HISTORY: Lung cancer screening, >=20 pk yr current smoker (Age 50-80y) tobacco Abuse COMPARISON: None. FINDINGS: Lungs/pleura: The central airways are clear and normal in caliber.Bandlike scarring in the lingula. Elongated calcified plaque-like nodulemeasuring 14 x 6 mm along the right major fissure, series 3 image 76.There are a few calcified granulomas. Centrilobular and paraseptalemphysematous changes at the lung apices. No suspicious nodule or mass.No pleural effusion or pneumothorax. Mediastinum/marques: No mediastinal mass or lymphadenopathy. No appreciablehilar lymphadenopathy on limited noncontrast evaluation. Vasculature: Normal caliber pulmonary arteries. Mild atheroscleroticcalcifications of the great vessels. Cardiac: Normal heart size. Mild coronary artery calcification. Chest wall: No axillary or supraclavicular lymphadenopathy. Mildbilateral gynecomastia. Limited abdomen: Unremarkable. Bones: Nondisplaced fractures of the lateral right 3rd and 4th ribs withprominent bony callus formation. IMPRESSION: Lung RADS 1. No suspicious pulmonary nodule. Guidelines recommend repeatlow-dose screening CT in 12 months. -------- FINAL REPORT -------- Dictated By: Sravan Wade Dictated Date: 01/16/2025 11:56 ET Assigned Physician: Sravan Wade Reviewed and Electronically Signed By: Sravan Wade Signed Date: 01/16/2025 13:28 ET Workstation ID: [id number] Transcribed By: Self Edit Transcribed Date: 01/16/2025 13:21 ET us Maninder Curtis MD IM CT PROCEDURES Final Result * HIV 1,2 antibody, p24 antigen with reflex to differentiation (12/05/2024 12:30 PM EST) HIV Combo AB/AG Negative Negative LAB CHEMISTRY METHOD 12/05/2024 5:32 PM EST [facility] Blood Venous blood specimen / Unknown Venipuncture / Unknown 12/05/2024 12:30 PM EST 12/05/2024 12:31 PM EST Narrative [facility] - 12/05/2024 5:32 PM EST This assay is a 4th generation assay allowing for earlier detection of HIV infection by detecting the presence of the HIV-1 p24 antigen as well as the traditional antibodies to HIV type 1 (including group O) and type 2. Use of a 4th generation assay is the current CDC recommendation for HIV screening. us [facility] BLOOD ORDERABLES Anusha olmedo Result [facility] [address] [place] [address], * Hepatitis C Screening (12/29/2022) Hepatitis C Screening abstracted Historical Provider HEALTH MAINTENANCE Final Result * Colonoscopy (09/14/2019) Colonoscopy no interpretation , abstracted Anatomical Region Laterality Modality Other Historical Provider HEALTH MAINTENANCE Final Result from Last 3 Months or Most Recently Relevant to Health Maintenance Insurance [facility] Member Subscriber Plan / Payer (Ef fective 2018-Present) Name:SHAHEEN CARLOS Relation to Subscriber:Self Name:Shaheen Carlos Payer ID:[id number] Group ID:[id number] Type:Not on file Address: [facility] [place] [id number] Care Teams Aircraft General Repair Mechanic Relationship Specialty Start Date End Date Acosta Pack PA [address] [place] [address] PCP - General Internal Medicine 12/09/20
--- OUTSIDE RECORDS SUMMARY | 2025-06-12 12:11 | XMS_ITS | Encounter Summary ---
Author Organization [facility] Address [address] [place] [address] Care Team Providers Care Inspector Canned Food Reconditioning Name Role Phone Acosta Pack Primary Care Provider [phone] Reason for Visit * Reason Onset Date Comments Nail Problem 03/07/2025 Encounter Details Date Type Department Care Team ([facility] st Contact Info) Description 03/07/2025 Telephone Adult Medicine [address] [phone] Acosta Pack PA [address] [place] [address] Social History Tobacco Use Types Packs/Day Years Used Date Smoking Tobacco: Every Day Cigarettes 1 43.3 Started: 03/04/1982 Smokeless Tobacco: Never Alcohol Use Standard Drinks/Week Comments Yes 0 [...] care for your loved ones. For example, child and family services worker or elderly care for an older adult? [...] Orientation Straight 01/11/2025 1: 49 PM EDT documented as of this encounter Progress Notes * Franci Farr RN - 06/08/2025 10:01 AM EDT Spoke with the pt Toe nail on 3rd toe right foot fell off He put healing cream on his heels when he took the sock off the nail came off. Has lost a few nails in the past couple months The big toe on the right foot is discolored for 3-4 months Asking for a referral to foot doctor Added the info to the appt note for 06/18 at 2:45 with care team * Andrea Hdez - 06/08/2025 9:15 AM EDT The patient has came in today in regards to toe nail problem. States that it is about to loosen andhave minor pain. * Elsa Lomax RN - 03/07/2025 10:30 AM EDT Call to pt he sttes he did not call and he is not having a problem with his toe nails Please follow up * Allie Anton - 03/07/2025 8:48 AM EDT Patient calling has a few missing toe nails and another one is loose on the big toe on the right, painful documented in this encounter Plan of Treatment Upcoming Encounters Date Type Department Care Team (Late st Contact Info) Description 06/18/2025 3:00 PM EDT Office Visit Adult Medicine [address] [phone] Yu Carmen PA [address] [place] [address] documented as of this encounter Visit Diagnoses Not on filedocumented in this encounter Additional Health Concerns Assessment Noted Time PHQ-9 Depression Total Score: 0 11/15/19 25 9:08 AM EST documented as of this encounter Care Teams Inspector Canned Food Reconditioning Relationship Specialty Start Date End Date Acosta Pack PA [address] [place] [address] PCP - General Internal Medicine 12/09/20 documented as of this encounter
--- OUTSIDE RECORDS SUMMARY | 2025-06-12 12:11 | XMS_ITS | Clinical Summary ---
Author Organization [facility] Address [address] [place] [address] Care Team Providers Care Customs Verifier Name Role Phone Acosta Pack PA-C Primary Care Provider Allergies No known active allergies Medications No known medications Active Problems Problem Noted Date Diagnosed Date Other specified anemias 11/06/2022 Social History Tobacco Use Types Packs/Day Years Used Date Smoking Tobacco: Never Assessed Sex and Gender Information Value Date Recorded Sex Assigned at Not on file Gender Identity Not on file Sexual Orientation Not on file Job Start Date Occupation Industry Not on file Not on file Not on file Last Filed Vital Signs Vital Sign Reading Time Taken Comments Blood Pressure 151/72 05/27/2023 9:26 AM EDT Pulse 68 05/27/2023 9:26 AM EDT Temperature 36.7 C (98 F) 05/27/2023 9:26 AM EDT Respiratory Rate - - Oxygen Saturation 100% 05/27/2023 9:26 AM EDT Inhaled Oxygen Concentration - - Weight 88.5 kg (195 lb) 05/27/2023 9:26 AM EDT Height 188 cm (6' 2 ) 05/27/2023 9:26 AM EDT Body Mass Index 25.04 05/27/2023 9:26 AM EDT Plan of Treatment Health Maintenance Due Date Last Done Comments Hepatitis B Vaccines (1 of 3 - 3-dose series) 1969 Hepatitis C Screening 1969 COVID-19 Vaccine (#1) 1969 Depression Screening 1981 Preventative Health Evaluation 1987 Colon Cancer Screening (Colonoscopy) 2014 Shingrix-Zoster Vaccine (1 of 2) 2019 Influenza Vaccine (#1) 2025 , 05/16/2017, 05/16/2017, Additional history exists DTap / Tdap / Td (3 - Td or Tdap) 07/03/2029 07/03/2019, 03/06/2009 Pneumococcal Vaccine Aged Out 01/28/2010 No long er eligible based on patient's age to complete this topic RSV Ped < 20 months Aged Out No longe r eligible based on patient's age to complete this topic Care Teams Customs Verifier Relationship Specialty Start Date End Date Acosta Pack, PA-C PCP - General Medical Services 08/31/22
[2025-06-12 12:36] LABS: Appearance Urine Clear; Glucose Urine UA Negative (Negative); PH 6.5 (5.0-9.0); Specific Gravity - Urine 1.015 (1.005-1.025); UMIC TRIGGER UACC YES
[2025-06-12 12:44] LABS: Cannabinoid Screen Urine Not Detected (Not Detect)
--- NOTE | 2025-06-12 13:21 | MHC.CM.ED ---
Received case management consult from Dr Allred. Patient came to the ER due to weakness. Found to have foot wounds. No hospital admission required. consult for VNA at home. Patient is active with [facility]. Spoke with Parth at [facility]. Patient does not receive any services from [facility]. Cytogenetic Technologist is Melissa. Can be reached via telephone at [phone], ext [phone]. No HCP on file with [facility]. Met with patient in regards to discharge planning. Patient lives alone, ambulates independently and had no services prior to coming to the ER. Offered to arrange VNA. Patient declining at this time stating he doesn't need any help. Patient will call someone for transportation home. Anne WONG and Dr Allred aware. Continue to monitor for d/c needs.
[2025-06-12 13:40] VITALS: BP 136/75; PULSE 70; RESP 18; TEMP 36.7; O2SAT 97
[2025-06-12 13:45] VITALS: BP 136/75; PULSE 70; RESP 18; TEMP 36.7; O2SAT 97
== END 2025-06-12 13:47 | disposition home or self-care (01) ==
PROVIDERS: Emergency Provider Emergency Medicine; PCP Physician Assistant Medical
DX: B35.1 Tinea unguium (principal); M54.50 Low back pain, unspecified; E11.8 Type 2 diabetes mellitus with unspecified complications; I10 Essential (primary) hypertension; E78.5 Hyperlipidemia, unspecified; F39 Unspecified mood [affective] disorder
CPT/HCPCS: 36415; 72100; 73630; 80048; 80076; 80164; 80307; 81001; 83690; 83735; 85025; 85652; 86140; 99284

== ENCOUNTER → 2025-06-12 10:00 | Outpatient (BNV) | payer OTHER, SELFPAY | PROVIDERS: Emergency Provider Emergency Medicine; PCP Physician Assistant Medical; Visit Provider Radiology Diagnostic Radiology | DX: M47.815 Spondylosis without myelopathy or radiculopathy, thoracolumbar region (principal); M79.671 Pain in right foot | CPT/HCPCS: 72100; 73630 ==

== ENCOUNTER 2025-08-02 12:10 | Outpatient (AMB) | payer OTHER, SELFPAY ==
[2025-08-02 12:25] VITALS: BP 134/70; PULSE 98; TEMP 36.4; O2SAT 97; BMI 23.9
--- NOTE | 2025-08-02 12:25 | AM.OFFWIN_ITS ---
Intake Vital Signs 08/02/25 12:25 Height 6 ft 2 in Weight 186 lb BMI 23.9 BP 134/70 Blood Pressure Location Lt brachial Position Sitting Pulse 98 Pulse Source Pulse Oximeter Temp 97.6 F Temp Source Oral Pulse Oximetry (%) 97 Oxygen Delivery Method Room Air Intake Visit Reasons: EP Allergies Intake Note: pt presents with sinus congestion with drainage for about a week Patient Tobacco Use Status: Current everyday Tobacco user Allergies No Known Allergies Allergy (Verified 08/02/25 12:27) Medication List - Last Reconciled 08/02/25 by Aisha Warren NP albuterol sulfate 90 mcg/actuation inhalation cetirizine (Zyrtec) 10 mg PO DAILY divalproex ER 500 mg PO BID fluticasone propionate 50 mcg/actuation 2 sprays intranasal DAILY levothyroxine 112 mcg PO DAILY lisinopril 10 mg PO DAILY metformin 500 mg PO QAM quetiapine 300 mg PO BID simvastatin 20 mg PO BEDTIME Do you need a note to return to daycare/school/sports/work: No HPI HPI Comments History of Present Illness Details 55 y/o Male patient who presents to the walk in clinic with c/o Runny nose, Sinus Congestion, Sore-throat and mild dry cough x 1 week. Pt has h/o Seasonal allergies and takes Flonase Nasal [place] with no relief. Denies Fevers, chills, nausea or vomiting. Pt c/o Lower back pain for a month now. He was seen at [facility] recently and his Back X-rays showed Degenerative Disk Disease. Reports no improvement on Ibuprofe n. Denies Bowel or bladder symptoms. Denies Numbness or tingling to his Legs or toes. [facility] Medical History (Updated 08/02/25 @ 12:45 by Aisha Warren NP) Allergic rhinitis Thyroid disorder Schizoaffective disorder Diabetes HLD (hyperlipidemia) HTN (hypertension) Social History (Updated 06/12/25 @ 11:00 by Nettie Allred DO) Patient Tobacco Use Status: Current everyday Tobacco user Review of Systems Const All systems reviewed & are unremarkable except as noted in HPI and below Physical Exam Vital Signs: Last Vital Signs Temp 97.6 F 08/02/25 12:25 Pulse 98 08/02/25 12:25 BP 134/70 08/02/25 12:25 Pulse Ox 97 08/02/25 12:25 Oxygen Delivery Method Room Air 08/02/25 12:25 BMI result Body Mass Index 23.9 Const General: no acute distress Orientation/consciousness: patient oriented x3 HEENT Head: Yes normocephalic Ears: TM abnormal with fluid behind the TM bilateral General nose exam: Abnormal mucous membranes and turbinates present boggy and erythematous and Nasal discharge present Face and sinus: Yes sinuses nontender Mouth: moist mucous membranes and Abnormal oral and palatal mucosa present erythematous Throat: Yes uvula midline Resp Effort & Inspection: normal respiratory effort Auscultation: clear to auscultation bilaterally Cardio Heart sounds: S1 normal heart sound present and S2 normal heart sound present Back/Spine/Pelvis Back: back tenderness Thoracic/Lumbar Spine: pain with thoraco-lumbar ROM and lumbar spinal tenderness Neuro General: patient oriented x3, gait normal and moves all extremities Assessment & Plan Assessment & Plan (1) Allergic rhinitis: Code(s): J30.9 - Allergic rhinitis, unspecified Qualifiers: Allergic rhinitis trigger: pollen Allergic rhinitis seasonality: seasonal Qualified Code(s): J30.1 - Allergic rhinitis due to pollen Plan: Ordered Respiration Panel to r/o Viral Ordered Cetirizine, continue with Flonase. F/U with PCP. (2) Low back pain: Code(s): M54.50 - Low back pain, unspecified Qualifiers: Back pain laterality: bilateral Chronicity: chronic Sciatica presence: without sciatica Qualified Code(s): M54.50 - Low back pain, unspecified; G89.29 - Other chronic pain Plan: Offered PT - Patient declined. Advised the use of NSAIDs or Acetaminophen for pain relief. Ice/Hot Orders: Orders Resp Pathogen Panel - [facility] Today J30.1 - Allergic rhinitis due to pollen Medications: New cetirizine (Zyrtec) 10 mg PO DAILY 30 tabs 0RF J30.1 - Allergic rhinitis due to pollen Coding Level of Care Code Est Pt Level 4 (92250) Diagnoses Seasonal allergic rhinitis due to pollen J30.1 Allergic rhinitis trigger: pollen Allergic rhinitis seasonality: seasonal Low back pain M54.50; G89.29 Back pain laterality: bilateral Chronicity: chronic Sciatica presence: without sciatica Time Spent (min) 20
--- OUTSIDE RECORDS SUMMARY | 2025-08-02 15:21 | XMS_ITS | Clinical Summary ---
Author Organization [facility] Address [address] [place] [address] Care Team Providers Care Drug Safety Specialist Name Role Phone Acosta Pack PA-C Primary [...] age to complete this topic Care Teams Drug Safety Specialist Relationship Specialty Start Date End Date Acosta Pack, PA-C PCP - General Medical Services 08/31/22
--- OUTSIDE RECORDS SUMMARY | 2025-08-02 15:21 | XMS_ITS | Clinical Summary ---
Author Organization [address] Address [address] [place] [address] [place] Phone Care Team Providers Care Display Maker Name Role Phone Acosta Pack Primary Care Provider [phone] Allergies No known active allergies Medications blood-glucose meter kit USE TO TEST BLOOD SUGAR ONCE DAILY 06/24/20 23 Active chlorphenirami ne (CHLOR-TRIMETO N) 4 mg tablet Take by mouth daily. Active lancets lancets Test blood sugars twice daily Pt has freestyle lite machine 01/07/20 23 Active lancets lancets USE DIRECTED EVERY DAY 03/24/20 24 Active OneTouch Ultra Test test strip USE DIRECTED EVERY DAY 03/06/20 24 Active OneTouch Ultra Test test strip USE DIRECTED EVERY DAY 06/19/20 24 Active acetaminophen (TYLENOL) 500 mg capsule Take 2 Capsules by mouth at bedtime. 11/19/19 24 Active azelastine (ASTELIN) 137 mcg (0.1 %) nasal spray USE 2 SPRAYS IN EACH NOSTRIL TWICE DAILY DIRECTED 02/29/20 24 Active cyclobenzaprin e (FLEXERIL) 10 mg tablet Take 1 Tablet by mouth 3 times daily as needed for Muscle spasms for up to 7 days. 07/07/20 24 Active diclofenac (VOLTAREN) 1 % topical gel Apply 4 g topically 4 times daily as needed for Other (arthritis pain). 06/22/20 22 Active divalproex (DEPAKOTE) [address] tablet Take 500 mg by mouth 2 times daily. Active naproxen (NAPROSYN) 500 mg tablet Take 1 Tablet by mouth 2 times daily (with meals) for 10 days. 07/07/20 24 Active QUEtiapine (SEROquel) 300 mg tablet Take 2 Tabs by mouth at bedtime. 01/22/20 16 Active YeePayTouch Ultra Test test strip USE DIRECTED EVERY DAY 100 strip 1 09/26/20 24 Active lancets (YeePayTouch Delica Plus Lancet) 33 gauge USE DIRECTED EVERY DAY 100 each 1 12/20/19 25 Active fluticasone propionate (FLONASE) 50 mcg/actuation nasal spray SHAKE LIQUID AND USE 2 SPRAYS IN EACH NOSTRIL EVERY DAY 48 g 3 01/11/20 25 Active albuterol HFA (PROAIR HFA ; PROVENTIL HFA ; VENTOLIN HFA) 90 mcg/actuation inhaler Inhale 2 puffs by mouth every 6 (six) hours if needed for wheezing. 6.7 g 3 02/08/20 25 Active OneTouch Ultra2 Meter misc USE TO TEST BLOOD SUGAR ONCE DAILY 1 each 11 03/06/20 25 Active metFORMIN (GLUCOPHAGE) 500 mg tablet TAKE 1 TABLET BY MOUTH DAILY WITH BREAKFAST 90 tablet 2 06/25/20 25 Active simvastatin (ZOCOR) 20 mg tablet TAKE 1 TABLET BY MOUTH AT BEDTIME 30 tablet 07/30/20 25 Active lisinopriL (PRINIVIL,ZEST RIL) 10 mg tablet TAKE 1 TABLET BY MOUTH DAILY 30 tablet 07/30/20 25 Active levothyroxine (SYNTHROID, LEVOTHROID) 112 mcg tablet TAKE 1 TABLET BY MOUTH DAILY 30 tablet 07/30/20 25 Active simvastatin (ZOCOR) 20 mg tablet TAKE 1 TABLET BY MOUTH AT BEDTIME 90 tablet 1 01/27/20 25 025 Discontinued lisinopriL (PRINIVIL,ZEST RIL) 10 mg tablet TAKE 1 TABLET BY MOUTH DAILY 90 tablet 1 01/27/20 25 025 Discontinued levothyroxine (SYNTHROID, LEVOTHROID) 112 mcg tablet TAKE 1 TABLET BY MOUTH DAILY 90 tablet 1 01/27/20 25 025 Discontinued Active Problems Problem Noted Date Diagnosed Date Other specified anemias 11/06/2022 Bilateral hip joint arthritis 08/28/2022 Thoracic arthritis 08/28/2022 Hypertension 11/26/2020 Type 2 diabetes mellitus ([facility] V24, [facility] V 28) 11/26/2020 Emphysema with chronic bronc hitis ([facility] V24, [facility] V28) 05/25/2011 LOC (loss of consciousness) ([facility] V24, [facility] V28) 05/06/2011 Overview (09/14/2024): Was seen by Diogenes for neuro that diagnosed him with probable syncope. He does not think that the patient has Sz. Schizoaffective disorder ([facility] V24, [facility] V 28) 05/06/2011 Lyme disease 03/19/2011 Overview (09/14/2024): Was treated with doxycycline 100 mg b.i.d. For 30 days, January 2011 Lung mass 03/13/2011 Overview (09/14/2024): PET was negative on 03/2011 High cholesterol 06/15/2008 Bipolar affective ([facility] V24, [facility] V28) Overview (09/14/2024): As of 12/2010 that patient is follow with Dr Paulson and he will take care of his meds including Depakote and Seroquel. Hypothyroidism 05/25/2008 Tobacco use disorder 05/25/2008 Immunizations Immunization Administration Dates Next Due H1N1 Inj Preservative [...] subun it RSVpreF, 0.5mL, Preservative Free (ABRYSVO) 50yo and older or 32 through 36 wks of 06/07/2025 Tdap Tetanus diptheria acell ular pertussis (Boostrix; Adacel) 7yo and older 07/03/2019,03/06/2009 Zoster recombinant (Shingrix ) 19yo and older 12/25/2024,10/27/2024 Surgical History Surgery Date Site/Laterality Comments HERNIA REPAIR Left PROCEDURE: HISTORICAL HERNIA REPAIR/ING; COMMENT: 1990 Medical History Medical History Date Comments Lyme arthritis of knee ([facility] V24, [facility] V28) 01/31/2011 DX:Lyme arthritis of knee ([facility]) Bipolar affective ([facility] V 24, [facility] V28) 05/25/2008 DX:Bipolar affective (HCC) Emphysema with chronic bronc hitis ([facility] V24, [facility] V28) 05/25/2011 DX:Emphysema with chronic bronchitis ([facility]) High cholesterol 06/15/2008 DX:High cholest ashleigh Hypothyroidism 05/25/2008 DX:Hypothyroidis m LOC (loss of consciousness) ([facility] V24, [facility] V28) 05/06/2011 DX:LOC (loss of consciousnes s) ([facility]) Historical Medical DX 03/13/2011 DX:Pulmona ry nodule Schizoaffective disorder ([facility] V24, [facility] V28) 05/06/2011 DX:Schizoaffective disorder ([facility]) Tobacco use disorder 05/25/2008 DX:Tobacco use disorder Hypertension 11/26/2020 DX:Hypertension Type 2 diabetes mellitus ([facility]/HCC V24, [facility]/HCC V28) 11/26/2020 DX:Type 2 diabetes mellitus (HCC) [...] Date Smoking Tobacco: Every Day Cigarettes 1 43.4 Started: 03/04/1982 Smokeless Tobacco: Never Tobacco Cessation:Ready [...] care for your loved ones. For example, director of early childhood education or elderly care for an older adult? [...] Date Recorded What is your living situation? Unrecognized valu e 11/15/2024 Sex and Gender Information Value Date [...] 04/30/2025 12:22 PM EDT Plan of Treatment Health Maintenance Due [...] Completed 06/07/2025, , 07/24/2023, Additional history exists RSV Immunization Adult Patients Completed 06/07/2025 HIB Vaccines Aged Out No longer eligi [...] complication, without long-term current use of insulin ([facility] V24, [facility] V28) MICROALBUMIN CREATININE URINE RATIO Routine 05/25/2025 9:27 AM EDT Right arm numbness Injury of chest wall, subsequent encounter High cholesterol Primary hypertension Hypothyroidism, unspecified type Type 2 diabetes mellitus without complication, without long-term current use of insulin ([facility] V24, [facility] V28) Tobacco use disorder HEMOGLOBIN A1C Routine 05/25/2025 9:27 AM EDT Right arm numbness Injury of chest wall, subsequent encounter High cholesterol Primary hypertension Hypothyroidism, unspecified type Type 2 diabetes mellitus without complication, without long-term current use of insulin ([facility] V24, [facility] V28) Tobacco use disorder THYROID STIMULATING HORMONE WITH REFLEX TO FREE T4 AND FREE T3 Routine 05/25/2025 9:27 AM EDT Right arm numbness Injury of chest wall, subsequent encounter High cholesterol Primary hypertension Hypothyroidism, unspecified type Type 2 diabetes mellitus without complication, without long-term current use of insulin ([facility] V24, [facility] V28) Tobacco use disorder COMPREHENSIVE METABOLIC PANEL Routine 05/25/2025 9:27 AM EDT Drug therapy Primary hypertension High cholesterol Hypothyroidism, unspecified type Type 2 diabetes mellitus without complication, without long-term current use of insulin ([facility] V24, [facility] V28) LIPID PANEL WITH REFLEX TO DIRECT LDL Routine 05/25/2025 9:27 AM EDT Drug therapy Primary hypertension High cholesterol Hypothyroidism, unspecified type Type 2 diabetes mellitus without complication, without long-term current use of insulin ([facility] V24, [facility] V28) CBC AND DIFFERENTIAL Routine 05/25/2025 9:27 AM EDT Drug therapy Primary hypertension High cholesterol Hypothyroidism, unspecified type Type 2 diabetes mellitus without complication, without long-term current use of insulin ([facility] V24, [facility] V28) VALPROIC ACID LEVEL, TOTAL Routine 05/25/2025 9:27 AM EDT Drug therapy Primary hypertension High cholesterol Hypothyroidism, unspecified type Type 2 diabetes mellitus without complication, without long-term current use of insulin ([facility] V24, [facility] V28) ECG ANNOTATED 05/02/2025 CT LUNG SCREENING Routine 01/11/2025 2:1 6 PM EDT Encounter for screening for lung cancer Cigarette smoker HIV 1, 2 ANTIBODY, P24 ANTIGEN WITH REFLEX TO DIFFERENTIATION Routine 12/05/2024 12:30 PM EST Right arm numbness Injury of chest wall, subsequent encounter High cholesterol Primary hypertension Hypothyroidism, unspecified type Type 2 diabetes mellitus without complication, without long-term current use of insulin ([facility] V24, [facility] V28) Tobacco use disorder HEPATITIS C SCREENING Routine 12/29/2022 COLONOSCOPY Routine 09/14/2019 from Last 3 Months or Most Recently Relevant to Health Maintenance Results * Thyroid stimulating hormone with reflex to free t4 and free t3 (05/25/2025 9:27 AM EDT) TSH 0.52 0.40 - 4.00 mcIU/mL LAB CHEMISTRY METHOD 05/25/2025 2:22 PM EDT [facility] Blood Venous blood specimen / Unknown Venipuncture / Unknown 05/25/2025 9:27 AM EDT 05/25/2025 9:27 AM EDT Acosta BARBER LAB BLOOD ORDERABLES Anusha l Result [facility] [address] [place] [address], [place] [phone] * Lipid panel with reflex to direct LDL (05/25/2025 9:27 AM EDT) Cholesterol 159 0 - 200 mg/dL LAB CHEMISTRY METHOD 05/25/2025 1:11 PM EDT [facility] Triglycerides 145 0 - 150 mg/dL LAB CHEMISTRY METHOD 05/25/2025 1:11 PM EDT [facility] HDL 42 >=40 mg/dL LAB CHEMISTRY METHOD 05/25/2025 1:11 PM EDT [facility] LDL Calculated 88 0 - 100 mg/dL LAB CHEMISTRY METHOD 05/25/2025 1:11 PM EDT [facility] Comment:Estimated LDL Calcul ated using equation: Total cholesterol - HDL cholesterol - (Triglycerides/5) VLDL Cholesterol Kalpesh 29 mg/dL LAB CHEMISTRY METHOD 05/25/2025 1:11 PM EDT [facility] Non HDL Chol. (LDL+VLDL) 117 <145 mg/dL LAB CHEMISTRY METHOD 05/25/2025 1:11 PM EDT [facility] Chol/HDL Ratio 3.8 0.0 - 4.4 LAB CHEMISTRY METHOD 05/25/2025 1:11 PM EDT [facility] Blood Venous blood specimen / Unknown Venipuncture / Unknown 05/25/2025 9:27 AM EDT 05/25/2025 9:27 AM EDT Wanda Wylie MD LAB BLOOD ORDERABLES Final Resul t [facility] [address] [place] [address], [place] [phone] * (ABNORMAL) CBC auto differential (05/25/2025 9:27 AM EDT) [facility] WBC 6.2 4.8 - 10.8 K/mcL LAB [facility] RBC 4.80 4.50 - 5.50 M/mcL LAB HEMETOLOGY METHOD [facility] Hemoglobin 14.9 13.5 - 17.5 g/dL LAB HEMETOLOGY METHOD [facility]/25[facility]2025 [facility] Hematocrit 42.5 42.0 - 54.0 % LAB HEMETOLOGY METHOD 05/25[facility]2025 [facility] MCV 88.5 79.0 - 98.0 FL LAB HEMETOLOGY METHOD [facility]/25[facility]2025 [facility] MCH 31.0 27.0 - 32.0 pcg LAB HEMETOLOGY METHOD 05/25/2025 12:18 PM [facility] MCHC 35.1 32.0 - 37.0 g/dL LAB HEMETOLOGY METHOD 05/25/2025 12:18 PM [facility] RDW 12.5 11.0 - 15.0 % LAB HEMETOLOGY METHOD 05/25/2025 12:18 PM [facility] Platelets 348 130 - 400 K/mcL LAB HEMETOLOGY METHOD 05/25/2025 12:18 PM [facility] MPV 9.2 7.0 - 11.0 FL LAB HEMETOLOGY METHOD 05/25/2025 12:18 PM [facility] NRBC 0.0 <1.0 % LAB HEMETOLOGY METHOD [facility] NRBC Absolute 0.00 <0.10 K/mcL LAB HEMETOLOGY METHOD 05/25/2025 12:18 PM EDT [facility] Neutrophils Relative 44.7 % LAB HEMETOLOGY METHOD 05/25/2025 12:18 PM [facility] Lymphocytes Relative 36.6 % LAB HEMETOLOGY METHOD [facility]2025 [facility] Monocytes Relative 16.5 % LAB HEMETOLOGY METHOD 05/25/2025 12:18 PM [facility] Eosinophils Relative 1.1 % LAB HEMETOLOGY METHOD 05/25/2025 12:18 PM [facility] Basophils Relative 0.8 % LAB HEMETOLOGY METHOD 05/25/2025 12:18 PM [facility] Immature Granulocytes Relative 0.3 % LAB HEMETOLOGY METHOD 05/25/2025 12:18 PM [facility] Neutrophils Absolute 2.76 1.50 - 7.00 K/mcL LAB HEMETOLOGY METHOD 05/25/2025 12:18 PM [facility] Lymphocytes Absolute 2.26 1.00 - 5.00 K/mcL LAB HEMETOLOGY METHOD 05/25/2025 12:18 PM [facility] Monocytes Absolute 1.02(H) 0.20 - 1.00 K/mcL LAB HEMETOLOGY METHOD 05/25/2025 12:18 PM [facility] Eosinophils Absolute 0.07 0.00 - 0.50 K/mcL LAB HEMETOLOGY METHOD 05/25/2025 12:18 PM [facility] Basophils Absolute 0.05 0.00 - 0.20 K/mcL LAB HEMETOLOGY METHOD 05/25/2025 12:18 PM [facility] Immature Granulocytes Absolute 0.02 0.00 - 0.03 K/mcL LAB HEMETOLOGY METHOD 05/25/2025 12:18 PM EDT [facility] Blood Venous blood specimen / Unknown Venipuncture / Unknown 05/25/2025 9:27 AM EDT 05/25/2025 9:27 AM EDT Wanda Wylie MD LAB BLOOD ORDERABLES Final Resul t Performing Organization Address City/[facility]/ZIP Co de Phone Number [facility] [address] [place] [address], * (ABNORMAL) Microalbumin creatinine urine ratio (05/25/2025 9:27 AM EDT) Creatinine, Urine 194.0 mg/dL LAB CHEMISTRY METHOD 05/25/2025 2:19 PM EDT [facility] Microalb, Ur 219.0(H) 0.0 - 29.0 mg/L LAB CHEMISTRY METHOD 05/25/2025 2:19 PM EDT [facility] Microalb/Crea t Ratio 113(H) <30 mg/g creat LAB CHEMISTRY METHOD 05/25/2025 2:19 PM EDT [facility] Urine Urine specimen obtained by clean catch procedure / Unknown Non-blood Collection / Unknown 05/25/2025 9:27 AM EDT 05/25/2025 9:27 AM EDT Acosta BARBER LAB URINE ORDERABLES Anusha l Result [facility] [address] [place] [address], [place] [phone] * Hemoglobin A1c (05/25/2025 9:27 AM EDT) Hemoglobin A1C 5.9 <6.5 % LAB CHEMISTRY METHOD 05/25/2025 1:38 PM EDT [facility] Mean Bld Glu Estim. 123 mg/dL LAB CHEMISTRY METHOD 05/25/2025 1:38 PM EDT [facility] Blood Venous blood specimen / Unknown Venipuncture / Unknown 05/25/2025 9:27 AM EDT 05/25/2025 9:27 AM EDT Acosta BARBER LAB BLOOD ORDERABLES Anusha l Result Performing Organization Address City/[facility]/ZIP Co de Phone Number [facility] [address] [place] [address], [place] [phone] * Valproic acid level, total (05/25/2025 9:27 AM EDT) [facility] Valproic Acid, Total 72 50 - 100 mcg/mL LAB CHEMISTRY METHOD 05/25/2025 1:11 PM EDT [facility] Blood Venous blood specimen / Unknown Venipuncture / Unknown 05/25/2025 9:27 AM EDT 05/25/2025 9:27 AM EDT Wanda Wylie MD LAB BLOOD ORDERABLES Final Resul t Performing Organization Address [facility]/ZIP Co de Phone Number [facility] [address] [place] [address], [place] [phone] * (ABNORMAL) Comprehensive metabolic panel (05/25/2025 9:27 AM EDT) [facility] Sodium 133 133 - 145 mmol/L LAB CHEMISTRY METHOD 05/25/2025 1:11 PM EDT [facility] Potassium 4.5 3.5 - 5.5 mmol/L LAB CHEMISTRY METHOD 05/25/2025 1:11 PM EDT [facility] Chloride 97 96 - 110 mmol/L LAB CHEMISTRY METHOD 05/25/2025 1:11 PM EDT [facility] CO2 27 21 - 32 mmol/L LAB CHEMISTRY METHOD 05/25/2025 1:11 PM EDT [facility] Anion Gap 9 3 - 11 LAB CHEMISTRY METHOD 05/25/2025 1:11 PM [facility] Glucose 87 70 - 100 mg/dL LAB CHEMISTRY METHOD 05/25/2025 1:11 PM [facility] BUN 11 5 - 25 mg/dL LAB CHEMISTRY METHOD 05/25/2025 1:11 PM [facility] Creatinine 0.98 0.70 - 1.30 mg/dL LAB CHEMISTRY METHOD 05/25/2025 1:11 PM [facility] eGFR 91 >=60 mL/min/1. 73m2 LAB CHEMISTRY METHOD 05/25/2025 1:11 PM [facility] Comment:Calculation based on the Chronic Kidney Disease Epidemiology Collaboration (CKD-EPI) equation refit without adjustment for race. BUN/Creatinine Ratio 11.2 LAB CHEMISTRY METHOD 05/25/2025 1:11 PM [facility] Calcium 9.9 8.5 - 10.5 mg/dL LAB CHEMISTRY METHOD 05/25/2025 1:11 PM [facility] AST (SGOT) 18 10 - 42 unit/L LAB CHEMISTRY METHOD 05/25/2025 1:11 PM [facility] ALT (SGPT) 15 10 - 60 unit/L LAB CHEMISTRY METHOD 05/25/2025 1:11 PM [facility] Alkaline Phosphatase 28(L) 42 - 121 unit/L LAB CHEMISTRY METHOD 05/25/2025 1:11 PM [facility] Total Protein 7.6 6.0 - 8.0 g/dL LAB CHEMISTRY METHOD 05/25/2025 1:11 PM [facility] Albumin 4.2 3.2 - 5.0 g/dL LAB CHEMISTRY METHOD 05/25/2025 1:11 PM [facility] Total Bilirubin 0.6 0.0 - 1.4 mg/dL LAB CHEMISTRY METHOD 05/25/2025 1:11 PM [facility] Blood Venous blood specimen / Unknown Venipuncture / Unknown 05/25/2025 9:27 AM EDT 05/25/2025 9:27 AM EDT Wanda Wylie MD LAB BLOOD ORDERABLES Final Resul t [facility] [address] [place] [address], * ECG-Annotated (05/02/2025) Provider Onbase MD ECG ORDERABLES Final Result * CT Lung Screening (01/11/2025 2:16 PM [...] Signed Date: 01/16/2025 13:28 ET Workstation ID: [id number] Transcribed By: Self Edit Transcribed Date: 01/16/2025 [...] Signed Date: 01/16/2025 13:28 ET Workstation ID: [id number] Transcribed By: Self Edit Transcribed Date: 01/16/2025 13:21 ET Maninder Curtis MD IMG CT PROCEDURES Final Result * HIV 1,2 antibody, p24 antigen with reflex to differentiation (12/05/2024 12:30 PM EST) [facility] HIV Combo AB/AG Negative Negative LAB CHEMISTRY METHOD 12/05/2024 5:32 PM EST [facility] Blood Venous blood specimen / Unknown Venipuncture / Unknown 12/05/2024 12:30 PM EST 12/05/2024 12:31 PM EST Narrative [facility] - 12/05/2024 5:32 PM EST This assay is a 4th generation assay allowing for earlier detection of HIV infection by detecting the presence of the HIV-1 p24 antigen as well as the traditional antibodies to HIV type 1 (including group O) and type 2. Use of a 4th generation assay is the current CDC recommendation for HIV screening. Acosta BARBER LAB BLOOD ORDERABLES Anusha l Result [facility] [address] [place] [address], * Hepatitis C Screening (12/29/2022) [facility] Hepatitis C Screening abstracted Nancy Mccollum MD HEALTH MAINTENANCE Final Result * Colonoscopy (09/14/2019) [facility] Colonoscopy no interpretation , abstracted Anatomical Region Laterality Modality Other Nancy Mccollum MD HEALTH MAINTENANCE Final Result from Last 3 Months or Most Recently Relevant to Health Maintenance Insurance [facility] Member Subscriber Plan / Payer (Ef fective 2018-Present) Name:SHAHEEN CARLOS Relation to Subscriber:Self Name:Shaheen Carlos Payer ID:[id number] Group ID:[id number] Type:Not on file Address: [place] [address] [address] [phone] Care Teams Display Maker Relationship Specialty Start Date End Date Acosta Pack PA [address] [facility] [place] [address] PCP - General Internal Medicine 12/09/20
== END 2025-08-02 13:05 | disposition home or self-care (01) ==
PROVIDERS: PCP Physician Assistant Medical; Visit Provider Nurse Practitioner Family
DX: J30.1 Allergic rhinitis due to pollen (principal); M54.50 Low back pain, unspecified; G89.29 Other chronic pain

== ENCOUNTER 2025-08-02 12:10 | Outpatient (REF) | payer OTHER, SELFPAY ==
[2025-08-03 10:04] LABS: Resp Syncy Virus RNA Qual PCR NEGATIVE (Negative); SARS COV2 PCR INHOUSE NEGATIVE (Negative)
== END 2025-08-02 12:11 | disposition home or self-care (01) ==
LOC: HO.LAB 12:10
PROVIDERS: Nurse Practitioner Family; PCP Physician Assistant Medical
DX: J30.1 Allergic rhinitis due to pollen (principal); M54.50 Low back pain, unspecified; G89.29 Other chronic pain; F17.200 Nicotine dependence, unspecified, uncomplicated; Z79.51 Long term (current) use of inhaled steroids
CPT/HCPCS: 87637; 99212

== ENCOUNTER 2025-08-03 09:06 | Outpatient (REF) | payer OTHER, SELFPAY ==
--- OUTSIDE RECORDS SUMMARY | 2025-08-03 09:53 | XMS_ITS | Clinical Summary ---
Author Organization [address] Address [address] [place] [address] [place] Phone Care Team Providers Care Aviation Technician Aircraft Name Role Phone Acosta Pack Primary Care Provider [phone] Allergies No known active allergies Medications blood-glucose [...] by mouth at bedtime. 01/22/20 16 Active introNetworksTouch Ultra Test test strip USE DIRECTED EVERY DAY 100 strip 1 09/26/20 24 Active lancets (introNetworksTouch Delica Plus Lancet) 33 gauge USE DIRECTED [...] 08/28/2022 Hypertension 11/26/2020 Type 2 diabetes mellitus ([facility] V24, [facility] V 28) 11/26/2020 Emphysema with chronic bronc hitis ([facility] V24, [facility] V28) 05/25/2011 LOC (loss of consciousness) ([facility] V24, [facility] V28) 05/06/2011 Overview (09/14/2024): Was seen by Diogenes for neuro that diagnosed him with probable syncope. He does not think that the patient has Sz. Schizoaffective disorder ([facility] V24, [facility] V 28) 05/06/2011 Lyme disease 03/19/2011 Overview (09/14/2024): Was treated with doxycycline 100 mg b.i.d. For 30 days, January 2011 Lung mass 03/13/2011 Overview (09/14/2024): PET was negative on 03/2011 High cholesterol 06/15/2008 Bipolar affective ([facility] V24, [facility] V28) Overview (09/14/2024): As of 12/2010 that [...] History Date Comments Lyme arthritis of knee ([facility] V24, [facility] V28) 01/31/2011 DX:Lyme arthritis of knee (H CC) Bipolar affective ([facility] V 24, [facility] V28) 05/25/2008 DX:Bipolar affective (HCC) Emphysema with chronic bronc hitis ([facility] V24, [facility] V28) 05/25/2011 DX:Emphysema with chronic bronchitis ([facility]) High cholesterol 06/15/2008 DX:High cholest ashleigh Hypothyroidism 05/25/2008 DX:Hypothyroidis m LOC (loss of consciousness) ([facility] V24, [facility] V28) 05/06/2011 DX:LOC (loss of consciousnes s) ([facility]) Historical Medical DX 03/13/2011 DX:Pulmona ry nodule Schizoaffective disorder ([facility] V24, [facility] V28) 05/06/2011 DX:Schizoaffective disorder ([facility]) Tobacco use disorder 05/25/2008 DX:Tobacco use disorder [...] care for your loved ones. For example, attendant children's institution or elderly care for an older adult? [...] complication, without long-term current use of insulin ([facility] V24, [facility] V28) MICROALBUMIN CREATININE URINE RATIO Routine 05/25/2025 9:27 AM EDT Right arm numbness Injury of chest wall, subsequent encounter High cholesterol Primary hypertension Hypothyroidism, unspecified type Type 2 diabetes mellitus without complication, without long-term current use of insulin ([facility] V24, [facility] V28) Tobacco use disorder HEMOGLOBIN A1C Routine 05/25/2025 9:27 AM EDT Right arm numbness Injury of chest wall, subsequent encounter High cholesterol Primary hypertension Hypothyroidism, unspecified type Type 2 diabetes mellitus without complication, without long-term current use of insulin ([facility] V24, [facility] V28) Tobacco use disorder THYROID STIMULATING HORMONE WITH REFLEX TO FREE T4 AND FREE T3 Routine 05/25/2025 9:27 AM EDT Right arm numbness Injury of chest wall, subsequent encounter High cholesterol Primary hypertension Hypothyroidism, unspecified type Type 2 diabetes mellitus without complication, without long-term current use of insulin ([facility] V24, [facility] V28) Tobacco use disorder COMPREHENSIVE METABOLIC PANEL Routine 05/25/2025 9:27 AM EDT Drug therapy Primary hypertension High cholesterol Hypothyroidism, unspecified type Type 2 diabetes mellitus without complication, without long-term current use of insulin ([facility] V24, [facility] V28) LIPID PANEL WITH REFLEX TO DIRECT LDL Routine 05/25/2025 9:27 AM EDT Drug therapy Primary hypertension High cholesterol Hypothyroidism, unspecified type Type 2 diabetes mellitus without complication, without long-term current use of insulin ([facility] V24, [facility] V28) CBC AND DIFFERENTIAL Routine 05/25/2025 9:27 AM EDT Drug therapy Primary hypertension High cholesterol Hypothyroidism, unspecified type Type 2 diabetes mellitus without complication, without long-term current use of insulin ([facility] V24, [facility] V28) VALPROIC ACID LEVEL, TOTAL Routine 05/25/2025 9:27 AM EDT Drug therapy Primary hypertension High cholesterol Hypothyroidism, unspecified type Type 2 diabetes mellitus without complication, without long-term current use of insulin ([facility] V24, [facility] V28) CT LUNG SCREENING Routine 01/11/2025 2:1 6 PM EDT Encounter for screening for lung cancer Cigarette smoker HIV 1, 2 ANTIBODY, P24 ANTIGEN WITH REFLEX TO DIFFERENTIATION Routine 12/05/2024 12:30 PM EST Right arm numbness Injury of chest wall, subsequent encounter High cholesterol Primary hypertension Hypothyroidism, unspecified type Type 2 diabetes mellitus without complication, without long-term current use of insulin ([facility] V24, [facility] V28) Tobacco use disorder HEPATITIS C SCREENING Routine 12/29/2022 COLONOSCOPY Routine 09/14/2019 from Last 3 Months or Most Recently Relevant to Health Maintenance Results * Thyroid stimulating hormone with reflex to free t4 and free t3 (05/25/2025 9:27 AM EDT) TSH 0.52 0.40 - 4.00 mcIU/mL LAB CHEMISTRY METHOD 05/25/2025 2:22 PM EDT [facility] Blood Venous blood specimen / Unknown Venipuncture / Unknown 05/25/2025 9:27 AM EDT 05/25/2025 9:27 AM EDT Acosta BARBER LAB BLOOD ORDERABLES Anusha l Result [facility] [address] [place] [address], [place] [phone] * Lipid panel with reflex to direct LDL (05/25/2025 9:27 AM EDT) Cholesterol 159 0 - 200 mg/dL LAB CHEMISTRY METHOD 05/25/2025 1:[address] [facility] Triglycerides 145 0 - 150 mg/dL LAB CHEMISTRY METHOD 05/25/2025 1:[address] [facility] HDL 42 >=40 mg/dL LAB CHEMISTRY METHOD 05/25/2025 1:[address] [facility] LDL Calculated 88 0 - 100 mg/dL LAB CHEMISTRY METHOD 05/25/2025 1:[address] [facility] Comment:Estimated LDL Calcul ated using equation: Total cholesterol - HDL cholesterol - (Triglycerides/5) VLDL Cholesterol Kalpesh 29 mg/dL LAB CHEMISTRY METHOD 05/25/2025 1:[address] [facility] Non HDL Chol. (LDL+VLDL) 117 <145 mg/dL LAB CHEMISTRY METHOD 05/25/2025 1:[address] [facility] Chol/HDL Ratio 3.8 0.0 - 4.4 LAB CHEMISTRY METHOD 05/25/2025 1:[address] [facility] Blood Venous blood specimen / Unknown Venipuncture / Unknown 05/25/2025 9:27 AM EDT 05/25/2025 9:27 AM EDT Wanda Wylie MD LAB BLOOD ORDERABLES Final Resul t [facility] [address] [place] [address], [place] [phone] * (ABNORMAL) CBC auto differential (05/25/2025 9:27 AM EDT) [facility] WBC 6.2 4.8 - 10.8 K/mcL LAB HEMETOLOGY METHOD 05/25/2025 12:18 PM [facility] RBC 4.80 4.50 - 5.50 M/mcL LAB HEMETOLOGY METHOD 05/25/2025 12:18 PM [facility] Hemoglobin 14.9 13.5 - 17.5 g/dL LAB HEMETOLOGY METHOD 05/25/2025 12:18 PM [facility] Hematocrit 42.5 42.0 - 54.0 % LAB HEMETOLOGY METHOD 05/25/2025 12:18 PM [facility] MCV 88.5 79.0 - 98.0 FL LAB HEMETOLOGY METHOD 05/25/2025 12:18 PM [facility] MCH 31.0 27.0 - 32.0 pcg LAB HEMETOLOGY METHOD 05/25/2025 12:18 PM [facility] MCHC 35.1 32.0 - 37.0 g/dL LAB HEMETOLOGY METHOD 05/25/2025 12:18 PM [facility] RDW 12.5 11.0 - 15.0 % LAB HEMETOLOGY METHOD 05/25/2025 12:18 PM [facility] Platelets 348 130 - 400 K/mcL LAB HEMETOLOGY METHOD 05/25/2025 12:18 PM [facility] MPV 9.2 7.0 - 11.0 FL LAB HEMETOLOGY METHOD 05/25/2025 12:18 PM [facility] NRBC 0.0 <1.0 % LAB HEMETOLOGY METHOD 05/25/2025 12:18 PM [facility] NRBC Absolute 0.00 <0.10 K/mcL LAB HEMETOLOGY METHOD 05/25/2025 12:[address] [facility] Neutrophils Relative 44.7 % LAB [facility]OLOG[facility] Lymphocytes Relative 36.6 % LAB HEMETOLOGY METHOD 05/25/2025 12:18 PM [facility] Monocytes Relative 16.5 % LAB HEMETOLOGY METHOD 05/25/2025 12:18 PM [facility] Eosinophils Relative 1.1 % LAB HEMETOLOGY METHOD 05/25/2025 12:18 PM [facility] Basophils Relative 0.8 % LAB HEMETOLOGY METHOD 05/25/2025 12:18 PM [facility] Immature Granulocytes Relative 0.3 % LAB HEMETOLOGY METHOD 05/25/2025 12:18 PM [facility] Neutrophils Absolute 2.76 1.50 - 7.00 K/mcL LAB HEMETOLOGY METHOD 05/25/2025 12:18 PM [facility] Lymphocytes Absolute 2.26 1.00 - 5.00 K/mcL LAB HEMETOLOGY METHOD 05/25/2025 12:18 PM [facility] Monocytes Absolute 1.02(H) 0.20 - 1.00 K/mcL LAB HEMETOLOGY METHOD 05/25/2025 12:18 PM [facility] Eosinophils Absolute 0.07 0.00 - 0.50 K/mcL LAB HEMETOLOGY METHOD 05/25/2025 12:18 PM [facility] Basophils Absolute 0.05 0.00 - 0.20 K/mcL LAB HEMETOLOGY METHOD 05/25/2025 12:18 PM [facility] Immature Granulocytes Absolute 0.02 0.00 - 0.03 K/mcL LAB HEMETOLOGY METHOD 05/25/2025 12:18 PM [facility] Blood Venous blood specimen / Unknown Venipuncture / Unknown 05/25/2025 9:27 AM EDT 05/25/2025 9:27 AM EDT Wanda Wylie MD LAB BLOOD ORDERABLES Final Resul t Performing Organization Address [facility] de Phone Number [facility] [address] [place] [address], * (ABNORMAL) Microalbumin creatinine urine ratio (05/25/2025 9:27 AM EDT) Creatinine, Urine 194.0 mg/dL LAB CHEMISTRY METHOD 05/25/2025 2:[address] [facility] Microalb, Ur 219.0(H) 0.0 - 29.0 mg/L LAB CHEMISTRY METHOD 05/25/2025 2:[address] [facility] Microalb/Crea t Ratio 113(H) <30 mg/g creat LAB CHEMISTRY METHOD 05/25/2025 2:[address] [facility] Urine Urine specimen obtained by clean catch procedure / Unknown Non-blood Collection / Unknown 05/25/2025 9:27 AM EDT 05/25/2025 9:27 AM EDT Acosta BARBER LAB URINE ORDERABLES Anusha l Result Performing Organization Address [facility]/ZIP Co de Phone Number [facility] [address] [place] [address], [place] [phone] * Hemoglobin A1c (05/25/2025 9:27 AM EDT) Hemoglobin A1C 5.9 <6.5 % LAB CHEMISTRY METHOD 05/25/2025 1:[address] [facility] Mean Bld Glu Estim. 123 mg/dL LAB CHEMISTRY METHOD 05/25/2025 1:[address] [facility] Blood Venous blood specimen / Unknown Venipuncture / Unknown 05/25/2025 9:27 AM EDT 05/25/2025 9:27 AM EDT Acosta BARBER LAB BLOOD ORDERABLES Anusha l Result Performing Organization Address [facility]/ZIP Co de Phone Number [facility] [address] [place] [address], [place] [phone] * Valproic acid level, total (05/25/2025 9:27 AM EDT) Pathologist [facility] [place] Valproic Acid, Total 72 50 - 100 mcg/mL LAB CHEMISTRY METHOD 05/25/2025 1:[address] [facility] Blood Venous blood specimen / Unknown Venipuncture / Unknown 05/25/2025 9:27 AM EDT 05/25/2025 9:27 AM EDT Wanda Wylie MD LAB BLOOD ORDERABLES Final Resul t Performing Organization Address [facility]/ZIP Co de Phone Number [facility] [address] [place] [address], [place] [phone] * (ABNORMAL) Comprehensive metabolic panel (05/25/2025 9:27 AM EDT) Pathologist [facility] [place] Sodium 133 133 - 145 mmol/L LAB CHEMISTRY METHOD 05/25/2025 1:[address] [facility] Potassium 4.5 3.5 - 5.5 mmol/L LAB CHEMISTRY METHOD 05/25/2025 1:[address] [facility] Chloride 97 96 - 110 mmol/L LAB CHEMISTRY METHOD 05/25/2025 1:[address] [facility] CO2 27 21 - 32 mmol/L LAB CHEMISTRY METHOD 05/25/2025 1:[address] [facility] Anion Gap 9 3 - 11 LAB CHEMISTRY METHOD 05/25/2025 1:11 PM [facility] Glucose 87 70 - 100 mg/dL LAB CHEMISTRY METHOD 05/25/2025 1:11 PM [facility] BUN 11 5 - 25 mg/dL LAB CHEMISTRY METHOD 05/25/2025 1:11 PM [facility] Creatinine 0.98 0.70 - 1.30 mg/dL LAB CHEMISTRY METHOD 05/25/2025 1:11 PM [facility] eGFR 91 >=60 mL/min/1. 73m2 LAB CHEMISTRY METHOD 05/25/2025 1:11 PM [facility] Comment:Calculation based on the Chronic Kidney Disease Epidemiology Collaboration (CKD-EPI) equation refit without adjustment for race. BUN/Creatinine Ratio 11.2 LAB CHEMISTRY METHOD 05/25/2025 1:11 PM [facility] Calcium 9.9 8.5 - 10.5 mg/dL LAB CHEMISTRY METHOD 05/25/2025 1:11 PM [facility] AST (SGOT) 18 10 - 42 unit/L LAB CHEMISTRY METHOD 05/25/2025 1:11 PM [facility] ALT (SGPT) 15 10 - 60 unit/L LAB CHEMISTRY METHOD 05/25/2025 1:11 PM [facility] Alkaline Phosphatase 28(L) 42 - 121 unit/L LAB CHEMISTRY METHOD 05/25/2025 1:11 PM [facility] Total Protein 7.6 6.0 - 8.0 g/dL LAB CHEMISTRY METHOD 05/25/2025 1:11 PM [facility] Albumin 4.2 3.2 - 5.0 g/dL LAB CHEMISTRY METHOD 05/25/2025 1:11 PM [facility] Total Bilirubin 0.6 0.0 - 1.4 mg/dL LAB CHEMISTRY METHOD 05/25/2025 1:11 PM [facility] Blood Venous blood specimen / Unknown Venipuncture / Unknown 05/25/2025 9:27 AM EDT 05/25/2025 9:27 AM EDT Wanda Wylie MD LAB BLOOD ORDERABLES Final Resul t [facility] ([facility] [address] [place] [address], * CT Lung Screening (01/11/2025 2:16 PM [...] Signed Date: 01/16/2025 13:28 ET Workstation ID: [id number] Transcribed By: Self Edit Transcribed Date: 01/16/2025 [...] Signed Date: 01/16/2025 13:28 ET Workstation ID: [id number] Transcribed By: Self Edit Transcribed Date: 01/16/2025 13:21 ET Maninder Curtis MD IMG CT PROCEDURES Final Result * HIV 1,2 antibody, p24 antigen with reflex to differentiation (12/05/2024 12:30 PM EST) [facility] HIV Combo AB/AG Negative Negative LAB CHEMISTRY METHOD 12/05/2024 5:[address] [facility] Blood Venous blood specimen / Unknown Venipuncture / Unknown 12/05/2024 12:30 PM EST 12/05/2024 12:[address] [facility] - 12/05/2024 5:32 PM EST [...] BARBER LAB BLOOD ORDERABLES Anusha l Result [facility] [address] [place] [address], * Hepatitis C Screening (12/29/2022) [facility] Hepatitis C Screening abstracted Historical [facility] Final Result * Colonoscopy (09/14/2019) [facility] Colonoscopy no interpretation , abstracted Anatomical Region Laterality Modality Other Historical [employer] [facility] [employer] Final Result from Last 3 Months or Most Recently Relevant to Health Maintenance Insurance [facility] Member Subscriber Plan / Payer (Ef fective 2018-Present) Name:SHAHEEN CARLOS Relation to Subscriber:Self Name:Shaheen Carlos Payer ID:[id number] Group ID:[id number] Type:Not on file Address: [place] [address] [address] [id number] Care Teams Aviation Technician Aircraft Relationship Specialty Start Date End Date Acosta Pack PA [address] [place] [address] PCP - General Internal Medicine 12/09/20
--- OUTSIDE RECORDS SUMMARY | 2025-08-03 09:53 | XMS_ITS | Clinical Summary ---
Author Organization [facility] Address [address] [place] [address] Care Team Providers Care Director Funeral Name Role Phone Acosta Pack PA-C Primary [...] age to complete this topic Care Teams Director Funeral Relationship Specialty Start Date End Date Acosta Pack, PA-C PCP - General Medical Services 08/31/22
== END 2025-08-03 09:07 | disposition home or self-care (01) ==
LOC: HO.LAB 09:06
PROVIDERS: Visit Provider Nurse Practitioner Family
DX: Z13.89 Encounter for screening for other disorder (principal)

== ENCOUNTER 2025-08-15 09:41 | Outpatient (REF) | payer OTHER, SELFPAY ==
[2025-08-15 13:21] LABS: Appearance Urine Clear; Glucose Urine UA Negative (Negative); PH 5.5 (5.0-9.0); Specific Gravity - Urine 1.015 (1.005-1.025); UMIC TRIGGER UACC YES
[2025-08-15 13:33] LABS: MANUAL DIFF FLAG NO
[2025-08-15 13:40] LABS: Hematocrit 36.4 % (42.0-52.0); Hemoglobin 12.1 g/dl (14.0-18.0); Imm Gran Abs Auto 0.03 X10*3/uL (0.00-0.03); Imm Gran Pct Auto 0.6 % (0.0-0.4); Lymphocytes Absolute Auto 1.7 X10*3/uL (1.2-4.9); Mean Corpuscular HGB Conc 33.2 g/dl (31.0-36.0); Mean Corpuscular Hemoglobin 30.0 pg (27.0-33.0); Mean Corpuscular Volume 90.3 fL (80.0-98.0); NRBC Abs Auto 0.000 X10*3/uL (0.0-0.012); NRBC Pct Auto 0.0 /100WBC (0.0-0.2); Platelet Count 273 X10*3/uL (160-400); Red Blood Count 4.03 X10*6/uL (4.60-5.80); White Blood Count 5.1 X10*3/uL (4.8-10.8)
[2025-08-15 14:20] LABS: Alanine Aminotransferase 9 U/L (0-40); Albumin Level 4.2 g/dL (3.5-5.0); Alkaline Phosphatase 25 U/L (39-117); Anion Gap 7 (12-20); Aspartate Amino Transferase 21 U/L (5-37); Blood Urea Nitrogen 15 mg/dL (9-16); Calcium 9.8 mg/dL (8.4-10.2); Carbon Dioxide 28 mmol/L (22-29); Chloride 107 mmol/L (96-108); Cholesterol 117 mg/dL (<200); Estimated Glomerular Filt Rate > 60; HDL Cholesterol 28 mg/dL (>40); Magnesium 2.0 mg/dL (1.6-2.6); Potassium 4.5 mmol/L (3.3-5.1); Sodium 137 mmol/L (135-145); Total Protein 7.0 g/dL (6.5-8.0); Triglycerides 95 mg/dL (<150)
[2025-08-15 14:33] LABS: Folate 6.1 ng/mL (> or = 4.0); Vitamin B12 529 pg/mL (200-900)
[2025-08-16 07:44] LABS: Syphilis Screen Nonreactive (Nonreactive)
[2025-08-16 08:02] LABS: HBS Num1 3.17 mIU/mL (0-7.99); HBsAGNum1 0.36 S/CO (0.00-0.99); HIV Num 1 0.05 S/CO (0.00-0.99); Hepatitis B Surface Antigen Negative (Negative); ~HepC Num1 0.46 S/CO (0.00-0.79); ~Hepatitis B Surface Antibody NONREACTIVE (Nonreactive); ~Hepatitis C Antibody Nonreactive (Nonreactive)
[2025-08-20 15:23] LABS: VITAMIN D (1,25 OH) D3 42 pg/mL; Vit D (1,25-Dihydroxy) Total 42 pg/mL (18-72); Vitamin D (1,25 OH) D2 <8 pg/mL
== END 2025-08-15 09:42 | disposition home or self-care (01) ==
LOC: HO.HKASLDS 09:41
PROVIDERS: PCP Physician Assistant Medical; Visit Provider Student in an Organized Health Care Education/Training Program
DX: M16.0 Bilateral primary osteoarthritis of hip (principal); M47.814 Spondylosis without myelopathy or radiculopathy, thoracic region; M47.816 Spondylosis without myelopathy or radiculopathy, lumbar region; M17.0 Bilateral primary osteoarthritis of knee; E11.9 Type 2 diabetes mellitus without complications; F31.9 Bipolar disorder, unspecified; F25.9 Schizoaffective disorder, unspecified; J45.20 Mild intermittent asthma, uncomplicated; E11.51 Type 2 diabetes mellitus with diabetic peripheral angiopathy without gangrene; J30.1 Allergic rhinitis due to pollen; M54.50 Low back pain, unspecified; G89.29 Other chronic pain; I10 Essential (primary) hypertension; F17.210 Nicotine dependence, cigarettes, uncomplicated
CPT/HCPCS: 36415; 80053; 80061; 81001; 82043; 82570; 82607; 82652; 82746; 83036; 83735; 84443; 85025; 86706; 86780; 86803; 87340; 87389; 96127; 99202

== ENCOUNTER 2025-08-15 09:41 | Outpatient (AMB) | payer OTHER, SELFPAY ==
--- NOTE | 2025-08-15 09:43 | A.OFFPC_ITS ---
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: No Accompanied by: Self / Same As Patient Allergies pollen extracts Allergy (Severe, Verified 08/15/25 09:56) Runny Nose Medication List - Last Reconciled 08/15/25 by Alec Clark MD albuterol sulfate 90 mcg/actuation inhalation cetirizine (Zyrtec) 10 mg PO DAILY divalproex ER 500 mg PO BID fluticasone propionate 50 mcg/actuation 2 sprays intranasal DAILY levothyroxine 112 mcg PO DAILY lisinopril 10 mg PO DAILY metformin 500 mg PO QAM quetiapine 300 mg PO BID simvastatin 20 mg PO BEDTIME Tobacco use date assessed: 08/15/25 Dental Screening Dental Screen Date: 08/15/25 Did you have a dental visit in the last 12 months?: No Did you have a dental problem in the last 6 months where you did not have access to dental care?: No Was dental information given to patient?: No HPI HPI Comments 2 History of Present Illness0 Details History of Present Illness The patient is a 55-year-old male presenting to establish care and for management of his arthritis. Arthritis and Chronic Pain: The patient reports issues with arthritis in his bilateral hips, thoracic spine, and bilateral knees, and is seeking help with pain management. He recently visited the ED for back pain and has a history of degenerative disc disease noted on X-ray. In the past, he declined visiting nurse services and physical therapy. He currently uses a pain cream for his symptoms. The knee pain and swelling reportedly began a few years ago after an injury where he missed a curb and his knee buckled. In November, he fell on ice and cracked his third and fourth ribs, reportedly on the right side. Type 2 Diabetes Mellitus: The patient has a history of type 2 diabetes, for which he takes metformin 500 mg once daily. He monitors his blood sugar at home and reports his last hemoglobin A1c was 5.7. He has complications including foot ulcers and the avulsion of three toenails around Labor Day weekend. He has not seen a geology scientist for a couple of years. He had an eye exam last month where a spot was found on his retina, which is being monitored annually. The patient has never seen a dietetics teacher or a hospital educator. Psychiatric Conditions: The patient has a history of schizoaffective disorder and bipolar disorder, which he describes as depression. He is treated with Divalproex (Depakote) and Quetiapine (Seroquel). He sees a therapist and psychiatrist at the [facility]; his therapy visits recently increased to every four weeks due to recent family deaths. Tobacco Use and Respiratory History: The patient is a current smoker with a 40.7 pack-year history, smoking one pack per day. He has a history of emphysema with chronic bronchitis and uses albuterol for asthma-like symptoms. A prior low-dose CT scan for lung cancer screening was reportedly normal. Endocrine and Metabolic History: The patient has hypothyroidism, treated with levothyroxine 112 mcg daily. He takes lisinopril 10 mg for hypertension and simvastatin 20 mg for high cholesterol. Medications: - Acetaminophen 500 mg (per chart review ) - Albuterol (ProAir) for asthma - Cetirizine for allergies - Chlorpheniramine 4 mg (per chart revie w) - Cyclobenzaprine 10 mg (per chart revie w) - Diclofenac (Voltaren) gel 1% for pain - Divalproex (Depakote) [address] for ps ychiatric condition - Fluticasone nasal spray for allergies - Levothyroxine 112 mcg for hypothyroidi sm - Lisinopril 10 mg for hypertension - Metformin 500 mg once daily for diabet es - Quetiapine (Seroquel) 800 mg twice martin ly for schizoaffective disorder - Simvastatin 20 mg for high cholesterol Social History: - Tobacco Use: The patient is a current smoker, using one pack per day for 40.7 years. - Family Status: Reports recent of his rslutp-ve-tuy and nephew. Family History: - Mother: . - Father: . Diagnostic Results: - Labs: Patient reports his last hemoglo bin A1c was 5.7. - Imaging: A prior back x-ray showed deg enerative disease. A low-dose CT scan for lung cancer screening was reportedly normal. - Tests and Diagnostics: A colonoscopy w as performed about four years ago. A fecal occult blood test was normal. An eye exam last month showed a spot on the retina, which is being monitored annually. Past Medical History - Bilateral hip joint arthritis - Thoracic arthritis - Hypertension - Type 2 diabetes mellitus, complicated by foot ulcers and toenail avulsion - Emphysema with chronic bronchitis - Schizoaffective disorder - Bipolar disorder - History of lung mass - Hypercholesterolemia - Hypothyroidism - Tobacco use (40.7 pack-years) - Peripheral vascular disease - Numbness of upper extremity - Recent emergency department visit for back pain - History of fall on ice in November h two cracked ribs - Degenerative disc disease - Retinal lesion under annual observatio n - Varicose veins Health Maintenance - Colon Cancer Screening: Last colonosco py was approximately four years ago; also reports a prior normal fecal occult blood test. - Lung Cancer Screening: Patient is a cu rrent smoker and reports a prior low- dose CT scan which was normal. - Diabetic Care: Had a diabetic eye exam last month, with annual follow-up recommended for a retinal lesion. Has not seen a geology scientist, dietetics teacher, or hospital educator in years. [facility] Medical History (Updated 08/15/25 @ 10:36 by Alec Clark MD) Retinal lesion Hypothyroid Nicotine use Bipolar depression Chronic pain Varicose veins of lower extremities without ulcer or inflammation Mild intermittent asthma Peripheral vascular disease Degenerative joint disease (DJD) of lumbar spine Arthritis of both knees Chronic pain of both knees Chronic lower back pain Diabetes type 2 Allergic rhinitis Thyroid disorder Schizoaffective disorder Diabetes HLD (hyperlipidemia) HTN (hypertension) Family History Father Throat cancer Maternal Grandmother Diabetes Social History (Updated 06/12/25 @ 11:00 by Nettie Allred DO) Housing: Apartment Alcohol intake: never Patient Tobacco Use Status: Current everyday Tobacco user Cigarette Packs Per Day: 1 e-Cigarette/Vaping Use: Never Used Second Hand Smoke Exposure: Yes service: No Current occupational status: disabled Cognitive needs: No Hearing needs: No Vision needs: No Questionnaire PHQ-9 Over the last 2 weeks, how often have you been bothered by any of the following problems? 1. Little interest or pleasure in doing things: not at all 2. Feeling down, depressed, or hopeless: not at all 3. Trouble falling or staying asleep, or sleeping too much: not at all 4. Feeling tired or having little energy: not at all 5. Poor appetite or overeating: not at all 6. Feeling bad about yourself - or that you are a failure or have let yourself or your family down: not at all 7. Trouble concentrating on things, such as reading the newspaper or watching television: not at all 8. Moving or speaking so slowly that other people could have noticed. Or the opposite - being so fidgety or restless that you have been moving around a lot more than usual: not at all 9. Thoughts that you would be better off or of hurting yourself in some way: not at all Total score: 0 Depression Screening Interpretation: Negative Depression Screening Done: Yes 26575 - PHQ-9 Billing: Yes Source: Developed by Drs. Stefan Bullard, Shelbie Patel, Juice Henriquez and colleagues, with an educational anali from [employer]. Thrive Questionnaire Date Thrive assessed: 08/15/25 I am a: Patient What is your living situation today?: I have a steady place to live Within the past 12 months, did the food you bought not last and you didn't have the money to get more?: Never true Within the past 12 months, did you worry whether your food would run out before you got money to buy more?: Never true Do you have trouble paying for medicines?: No Do you have trouble getting transportation to medical appointments?: No Do you have trouble paying your heating and electricity bill?: No Do you have trouble taking care of your child, family member or friend?: No Do you have trouble with day-to-day activities such as bathing, preparing meals, shopping, managing finances, etc.?: No Are you currently unemployed and looking for a job?: No Are you interested in more education?: No Please select the resources that you would like help with: None Currently or been in a relationship where the following occur: No concerns reported THRIVE Score: 0 AUDIT C Alcohol Use Questionnaire (AUDIT-C) 1. How often do you have a drink containing alcohol?: Never Total Score: 0 YOUNG-7 AMB Questionnaire YOUNG-7 Date YOUNG - 7 assessed: 08/15/25 Feeling nervous, anxious, or on edge: 0 = Not at all Not being able to stop or control worryin = Not at all Worrying too much about different things: 0 = Not at all Trouble relaxin = Not at all Being so restless that it is hard to sit still: 0 = Not at all Becoming easily annoyed or irritable: 0 = Not at all Feeling afraid as if something awful might happen: 0 = Not at all Total YOUNG-7 score (0-4 normal; 5-9 mild; 10-14 moderate; 15-21 severe): 0 Source: Developed by Drs. Stefan Bullard, Shelbie Patel, Juice Henriquez and colleagues, with an educational anali from [employer]. YOUNG-7 Assessment Billing YOUNG-7 Assessment Tool: YOUNG-7 Assessment 33078 Review of Systems Narrative Review of Systems - General: Reports sleeping well. - Musculoskeletal: Reports pain from arthritis in his hips, back, and both knees. Reports intermittent knee swelling. Reports a history of cracked ribs from a fall. - Integumentary: Reports losing three toenails and having ulcers on his feet. Reports having varicose veins. Notes his feet are always purple. - Neurologic: Reports numbness in the upper extremities. - Psychiatric: Reports issues with depression. - GI: Reports normal bowel movements. - : Reports normal urination. - Allergic: Denies known allergies. 10-point ROS reviewed and negative except as noted in HPI Physical exam (Primary Care) Tobacco/Smoking Status: Tobacco use Status Patient Tobacco Use Status Current everyday Tobacco 08/15/25 09:44 Depression Screening Interpretation: Negative Currently or been in a relationship where the following occur: No concerns reported Narrative Physical Exam General: Well-appearing, in no acute distress. Vital signs: Within normal limits. HEENT: Normocephalic, atraumatic. PERRLA, EOMI. Conjunctiva clear, sclera anicteric. Oropharynx clear, mucous membranes moist. TMs intact bilaterally. Neck: Supple, no lymphadenopathy, no thyromegaly, no JVD or carotid bruits. Cardiovascular: RRR, normal S1/S2, no murmurs, rubs, or gallops. Peripheral pulses 2+ and symmetric. No edema. Respiratory: Lungs clear to auscultation bilaterally, no wheezes, rales, or rhonchi. Normal effort. Abdomen: Soft, non-tender, non-distended. Normoactive bowel sounds. No hepatosplenomegaly, no masses. MSK: Full range of motion, no joint swelling or deformity. Normal gait. Notable for arthritis in both knees and degenerative disc disease in the back. Varicose veins present. Skin: Warm, dry, intact. No rashes, lesions, or pallor. Notable for purple discoloration in feet. Neuro: Alert and oriented x3. Cranial nerves II-XII intact. Strength 5/5 throughout. Sensation intact. Reflexes 2+ symmetric. Normal coordination and gait. Psych: Appropriate mood and affect. Normal judgment and insight. Extrem Other: Coding Level of Care Code New Pt Level 4 (02437) Diagnoses Mild intermittent asthma J45.20 Peripheral vascular disease I73.9 Diabetes type 2 E11.9 Seasonal allergic rhinitis due to pollen J30.1 Allergic rhinitis trigger: pollen Allergic rhinitis seasonality: seasonal Arthritis of both knees M17.0 Chronic lower back pain M54.50; G89.29 Chronic pain of both knees M25.561; M25.562; G89.29 Degenerative joint disease (DJD) of lumbar spine M47.816 Hypertension I10 Chronic pain G89.29 Bipolar depression F31.9 Nicotine use Z72.0 Hypothyroid E03.9 Retinal lesion H35.9 Additional Codes YOUNG-7 Assessment Billing - YOUNG-7 Assessment Tool: YOUNG-7 Assessment 73492 ([id number]) PHQ-9 - 89353 - PHQ-9 Billing: Yes ([id number]) Assessment & Plan Assessment & Plan (1) Mild intermittent asthma: Code(s): J45.20 - Mild intermittent asthma, uncomplicated Category: Medical (2) Peripheral vascular disease: Code(s): I73.9 - Peripheral vascular disease, unspecified Category: Medical (3) Diabetes type 2: Code(s): E11.9 - Type 2 diabetes mellitus without complications Category: Medical (4) Allergic rhinitis: Code(s): J30.9 - Allergic rhinitis, unspecified Category: Medical Qualifiers: Allergic rhinitis trigger: pollen Allergic rhinitis seasonality: s easonal Qualified Code(s): J30.1 - Allergic rhinitis due to pollen (5) Arthritis of both knees: Code(s): M17.0 - Bilateral primary osteoarthritis of knee Category: Medical (6) Chronic lower back pain: Code(s): M54.50 - Low back pain, unspecified; G89.29 - Other chronic pain Category: Medical (7) Chronic pain of both knees: Code(s): M25.561 - Pain in right knee; M25.562 - Pain in left knee; G89.29 - Other chronic pain Category: Medical (8) Degenerative joint disease (DJD) of lumbar spine: Code(s): M47.816 - Spondylosis without myelopathy or radiculopathy, lumbar region Category: Medical (9) Hypertension: Code(s): I10 - Essential (primary) hypertension (10) Chronic pain: Code(s): G89.29 - Other chronic pain Category: Medical (11) Bipolar depression: Code(s): F31.9 - Bipolar disorder, unspecified Category: Medical (12) Nicotine use: Code(s): Z72.0 - Tobacco use Category: Medical (13) Hypothyroid: Code(s): E03.9 - Hypothyroidism, unspecified Category: Medical (14) Retinal lesion: Code(s): H35.9 - Unspecified retinal disorder Category: Medical Plan Consent The patient gave verbal consent to have a picture of his foot taken to be included in his medical record. Patient was informed and verbally consented to the use of an ambient scribe for clinic note documentation during this visit. Plan 1. Chronic Pain (Bilateral Knee Arthritis, Chronic Low Back Pain, Degenerative Disc Disease) - A referral will be placed for physical therapy to address chronic low back pain and bilateral knee pain. - Tylenol 650 mg extended-release will be prescribed for pain management. - Diclofenac gel will be prescribed for topical application to the knees. - A referral to pain management will be considered for further evaluation and treatment options. - The patient was instructed to return to the clinic if he feels there is fluid in his knee for possible aspiration. 2. Type 2 Diabetes Mellitus - A comprehensive blood panel will be ordered, including hemoglobin A1c, cholesterol, and B12 levels. - A referral will be made to podiatry for diabetic foot care. - Referrals will be made to a dietetics teacher and a hospital educator to assist with diabetes management. 3. Peripheral Vascular Disease And Varicose Veins - A referral will be placed for a vascular surgery consultation to evaluate his varicose veins and peripheral vascular disease. 4. Tobacco Use Disorder And Respiratory Health - The patient continues to smoke one pack per day. - An attempt will be made to obtain the results of his previous low-dose CT lung screening. 5. Comprehensive Care And Follow-Up - The patient will have a comprehensive blood panel drawn to assess thyroid function, cholesterol, A1c, and B12. - The patient is scheduled for a follow-up visit in two weeks to review results and discuss the ongoing plan of care. Discussion Notes I discussed with the patient his multiple chronic medical conditions and my plan to establish comprehensive care. I explained the need for a full panel of blood work to check his hemoglobin A1c, cholesterol, thyroid, and B12 levels. I informed him about the referrals I am placing to a vascular surgeon for his veins, a geology scientist for his feet, a dietetics teacher, and a hospital educator. For his chronic pain, I explained that we would start with Tylenol and a topical gel, and I would also refer him to physical therapy and pain management. I advised him to return if he feels his knee has significant fluid accumulation for a possible drainage procedure. His consent was obtained to take a picture of his foot for his medical record. We agreed to a follow-up appointment in two weeks to review all results and solidify the treatment plan. Patient Instructions - Please go to the lab to have your blood drawn as ordered. - You will receive several referrals to specialists: a vein doctor (vascular surgeon), a foot doctor (geology scientist), a dietetics teacher, and a art educator. Please follow up to schedule these appointments. - A referral for physical therapy for your back and knee pain will be sent. Please attend these sessions. - I have sent prescriptions for Acetaminophen for pain and Diclofenac gel to rub on your knees. Please pick them up from your pharmacy. - If you feel that your knee is very swollen with fluid, please come back to the clinic for an evaluation. - Please schedule a follow-up appointment with me in two weeks to go over your test results. Medical Decision Making The patient is a 55-year-old male with a complex medical history including multiple, poorly controlled chronic conditions who presents to establish care. His primary complaint is chronic pain from multilevel arthritis and degenerative disc disease, for which he has previously been non-adherent with recommendations for physical therapy. My approach is to re-engage him in his care through a multimodal strategy, starting with non-opioid analgesics (acetaminophen, topical diclofenac) and initiating referrals to physical therapy and pain management. His type 2 diabetes is complicated by evidence of peripheral vascular disease and neuropathy, manifesting as foot ulcers and toenail loss. Despite a patient- reported hemoglobin A1c of 5.7, his clinical presentation warrants a comprehensive diabetic management plan. To prevent further complications, I am ordering baseline labs and placing critical referrals to podiatry, nutrition, and a hospital educator. His significant 40.7 pack-year smoking history and diagnosis of emphysema necessitate obtaining records of his prior low-dose CT scan. The presence of extensive varicose veins and lower extremity discoloration is concerning for significant peripheral vascular disease, prompting a vascular surgery consult. His complex psychiatric, endocrine, and cardiovascular comorbidities will be assessed via a comprehensive lab panel to establish a baseline and guide future medication management. The immediate goal is to stabilize his conditions, improve functional status, and promote engagement in preventative care, with a close follow-up in two weeks to review progress and results. Total time spent caring for the patient today was 20 minutes. This includes time spent before the visit reviewing the chart, time spent documenting, and time spent reviewing laboratory results, diagnostic imaging, medications, performing a medically necessary evaluation, counseling on diagnoses, care coordination. Orders: Orders 2 Hemoglobin A1c Today Z13.9 - Encounter for screening, unspecified Hepatitis B Surface Antibody Today Z13.9 - Encounter for screening, unspecified Hepatitis C Antibody Today Z13.9 - Encounter for screening, unspecified HIV Ab/Ag Today Z13.9 - Encounter for screening, unspecified Lipid Panel Today Z13.9 - Encounter for screening, unspecified Magnesium Today Z13.9 - Encounter for screening, unspecified TSH reflex Free T4 Today Z13.9 - Encounter for screening, unspecified Complete Blood Count Auto Diff Today Z13.9 - Encounter for screening, unspecified Comprehensive Met. Panel Today Z13.9 - Encounter for screening, unspecified Hepatitis B Surface Antigen Today Z13.9 - Encounter for screening, unspecified UA CC w/rflx Micro + Cult Today Z13.9 - Encounter for screening, unspecified Vitamin B12 and Folate Today Z13.9 - Encounter for screening, unspecified Vitamin D 1,25 dihydroxy Today Z13.9 - Encounter for screening, unspecified Syphilis Screen Today Z13.9 - Encounter for screening, unspecified Microalbumin, Random (w Creat) Today Z13.9 - Encounter for screening, unspecified PT Evaluation and Treatment Today G89.29 - Other chronic pain, M17.0 - Bilateral primary osteoarthritis of knee, M25.561 - Pain in right knee, M25.562 - Pain in left knee, M47.816 - Spondylosis without myelopathy or radiculopathy, lumbar region, M54.50 - Low back pain, unspecified Referrals 2 Ophthalmology Referral E11.9 - Type 2 diabetes mellitus without complications, Z13.5 - Encounter for screening for eye and ear disorders Podiatry Referral E11.9 - Type 2 diabetes mellitus without complications Nutrition/Dietitian Referral E11.9 - Type 2 diabetes mellitus without complications Nurse Navigator Referral E11.9 - Type 2 diabetes mellitus without complications Vascular Surgery Referral I73.9 - Peripheral vascular disease, unspecified, I83.90 - Asymptomatic varicose veins of unspecified lower extremity Medications: New 2 acetaminophen ER 650 mg PO Q12H 60 tabs 0RF diclofenac sodium 1% apply to single knee, ankle, foot; for foot includes sole/toes/top of foot 4 grams topical QID 100 grams 0RF
[2025-08-15 10:01] VITALS: BP 110/64; PULSE 74; RESP 20; TEMP 36.8; O2SAT 97; BMI 26.2
--- OUTSIDE RECORDS SUMMARY | 2025-08-15 10:50 | XMS_ITS | Clinical Summary ---
Author Organization [facility] Address [address] [place] [address] Care Team Providers Care Director [facility] Name Role Phone Acosta Pack PA-C Primary [...] to complete this topic Care Teams Director [facility] Relationship Specialty Start Date End Date Acosta Pack, PA-C PCP - General Medical Services 08/31/22
--- OUTSIDE RECORDS SUMMARY | 2025-08-15 10:50 | XMS_ITS | Clinical Summary ---
Author Organization [address] Address [address] [place] [address] [place] Phone Care Team Providers Care Branch Lead Name Role Phone Acosta Pack Primary Care Provider [phone] Allergies No known active allergies Medications blood-glucose [...] by mouth at bedtime. 01/22/20 16 Active FoodyTouch Ultra Test test strip USE DIRECTED EVERY DAY 100 strip 1 09/26/20 24 Active lancets (FoodyTouch Delica Plus Lancet) 33 gauge USE DIRECTED [...] 08/28/2022 Hypertension 11/26/2020 Type 2 diabetes mellitus ([facility] V24, [facility] V 28) 11/26/2020 Emphysema with chronic bronc hitis ([facility] V24, [facility] V28) 05/25/2011 LOC (loss of consciousness) ([facility] V24, [facility] V28) 05/06/2011 Overview (09/14/2024): Was seen by Diogenes for neuro that diagnosed him with probable syncope. He does not think that the patient has Sz. Schizoaffective disorder ([facility] V24, [facility] V 28) 05/06/2011 Lyme disease 03/19/2011 Overview (09/14/2024): Was treated with doxycycline 100 mg b.i.d. For 30 days, January 2011 Lung mass 03/13/2011 Overview (09/14/2024): PET was negative on 03/2011 High cholesterol 06/15/2008 Bipolar affective ([facility] V24, [facility] V28) Overview (09/14/2024): As of [...] History Date Comments Lyme arthritis of knee ([facility] V24, [facility] V28) 01/31/2011 DX:Lyme arthritis of knee (H CC) Bipolar affective ([facility] V 24, [facility] V28) 05/25/2008 DX:Bipolar affective (HCC) Emphysema with chronic bronc hitis ([facility] V24, [facility] V28) 05/25/2011 DX:Emphysema with chronic bronchitis ([facility]) High cholesterol 06/15/2008 DX:High cholest ashleigh Hypothyroidism 05/25/2008 DX:Hypothyroidis m LOC (loss of consciousness) ([facility] V24, [facility] V28) 05/06/2011 DX:LOC (loss of consciousnes s) ([facility]) Historical Medical DX 03/13/2011 DX:Pulmona ry nodule Schizoaffective disorder ([facility] V24, [facility] V28) 05/06/2011 DX:Schizoaffective disorder ([facility]) Tobacco use disorder 05/25/2008 DX:Tobacco [...] care for your loved ones. For example, childcare worker or elderly care for an older [...] Procedure Name Priority Date/Time Associated Diagnosis Comments EXTERNAL CLINICAL LAB 08/02/2025 CBC WITH AUTO DIFFERENTIAL Routine 05/25/2025 9:27 AM EDT Drug therapy Primary hypertension High cholesterol Hypothyroidism, unspecified type Type 2 diabetes mellitus without complication, without long-term current use of insulin ([facility] V24, [facility] V28) MICROALBUMIN CREATININE URINE RATIO Routine 05/25/2025 9:27 AM EDT Right arm numbness Injury of chest wall, subsequent encounter High cholesterol Primary hypertension Hypothyroidism, unspecified type Type 2 diabetes mellitus without complication, without long-term current use of insulin ([facility] V24, [facility] V28) Tobacco use disorder HEMOGLOBIN A1C Routine 05/25/2025 9:27 AM EDT Right arm numbness Injury of chest wall, subsequent encounter High cholesterol Primary hypertension Hypothyroidism, unspecified type Type 2 diabetes mellitus without complication, without long-term current use of insulin ([facility] V24, [facility] V28) Tobacco use disorder THYROID STIMULATING HORMONE WITH REFLEX TO FREE T4 AND FREE T3 Routine 05/25/2025 9:27 AM EDT Right arm numbness Injury of chest wall, subsequent encounter High cholesterol Primary hypertension Hypothyroidism, unspecified type Type 2 diabetes mellitus without complication, without long-term current use of insulin ([facility] V24, [facility] V28) Tobacco use disorder COMPREHENSIVE METABOLIC PANEL Routine 05/25/2025 9:27 AM EDT Drug therapy Primary hypertension High cholesterol Hypothyroidism, unspecified type Type 2 diabetes mellitus without complication, without long-term current use of insulin ([facility] V24, [facility] V28) LIPID PANEL WITH REFLEX TO DIRECT LDL Routine 05/25/2025 9:27 AM EDT Drug therapy Primary hypertension High cholesterol Hypothyroidism, unspecified type Type 2 diabetes mellitus without complication, without long-term current use of insulin ([facility] V24, [facility] V28) CBC AND DIFFERENTIAL Routine 05/25/2025 9:27 AM EDT Drug therapy Primary hypertension High cholesterol Hypothyroidism, unspecified type Type 2 diabetes mellitus without complication, without long-term current use of insulin ([facility] V24, [facility] V28) VALPROIC ACID LEVEL, TOTAL Routine 05/25/2025 9:27 AM EDT Drug therapy Primary hypertension High cholesterol Hypothyroidism, unspecified type Type 2 diabetes mellitus without complication, without long-term current use of insulin ([facility] V24, [facility] V28) CT LUNG SCREENING Routine 01/11/2025 2:1 6 PM EDT Encounter for screening for lung cancer Cigarette smoker HIV 1, 2 ANTIBODY, P24 ANTIGEN WITH REFLEX TO DIFFERENTIATION Routine 12/05/2024 12:30 PM EST Right arm numbness Injury of chest wall, subsequent encounter High cholesterol Primary hypertension Hypothyroidism, unspecified type Type 2 diabetes mellitus without complication, without long-term current use of insulin ([facility] V24, [facility] V28) Tobacco use disorder HEPATITIS C SCREENING Routine 12/29/2022 COLONOSCOPY Routine 09/14/2019 from Last 3 Months or Most Recently Relevant to Health Maintenance Results * External clinical lab (08/02/2025) us Provider [facility] LAB BLOOD ORDERABLES Fin al Result * Thyroid stimulating hormone with reflex to free t4 and free t3 (05/25/2025 9:27 AM EDT) TSH 0.52 0.40 - 4.00 mcIU/mL LAB CHEMISTRY METHOD 05/25/2025 2:22 PM EDT [facility] Blood Venous blood specimen / Unknown Venipuncture / Unknown 05/25/2025 9:27 AM EDT 05/25/2025 9:27 AM EDT Acosta BARBER LAB BLOOD ORDERABLES Anusha l Result [facility] [address] [place] [address], [place] [phone] * Lipid panel with reflex to direct LDL (05/25/2025 9:27 AM EDT) Cholesterol 159 0 - 200 mg/dL LAB CHEMISTRY METHOD 05/25/2025 1:11 PM EDT [facility] Triglycerides 145 0 - 150 mg/dL LAB CHEMISTRY METHOD 05/25/2025 1:11 PM EDT [facility] HDL 42 >=40 mg/dL LAB CHEMISTRY METHOD 05/25/2025 1:11 PM EDT [facility] LDL Calculated 88 0 - 100 mg/dL LAB CHEMISTRY METHOD 05/25/2025 1:11 PM EDT [facility] Comment:Estimated LDL Calcul ated using equation: Total cholesterol - HDL cholesterol - (Triglycerides/5) VLDL Cholesterol Kalpesh 29 mg/dL LAB CHEMISTRY METHOD 05/25/2025 1:11 PM EDT [facility] Non HDL Chol. (LDL+VLDL) 117 <145 mg/dL LAB CHEMISTRY METHOD 05/25/2025 1:11 PM EDT [facility] Chol/HDL Ratio 3.8 0.0 - 4.4 LAB CHEMISTRY METHOD 05/25/2025 1:11 PM EDT [facility] Blood Venous blood specimen / Unknown Venipuncture / Unknown 05/25/2025 9:27 AM EDT 05/25/2025 9:27 AM EDT Wanda Wylie MD LAB BLOOD ORDERABLES Final Resul t [facility] [address] [place] [address], * (ABNORMAL) CBC auto differential (05/25/2025 9:27 AM EDT) WBC 6.2 4.8 - 10.8 K/mcL LAB HEMETOLOGY METHOD 05/25/2025 12:18 PM EDT [facility] RBC 4.80 4.50 - 5.50 M/mcL LAB HEMETOLOGY METHOD 05/25/2025 12:18 PM EDT [facility] Hemoglobin 14.9 13.5 - 17.5 g/dL LAB HEMETOLOGY METHOD 05/25/2025 12:18 PM EDT [facility] Hematocrit 42.5 42.0 - 54.0 % LAB HEMETOLOGY METHOD 05/25/2025 12:18 PM EDT [facility] MCV 88.5 79.0 - 98.0 FL LAB HEMETOLOGY METHOD 05/25/2025 12:18 PM EDT [facility] MCH 31.0 27.0 - 32.0 pcg LAB HEMETOLOGY METHOD [facility] MCHC 35.1 32.0 - 37.0 g/dL LAB HEMETOLOGY METHOD 05/25/2025 12:18 PM EDT [facility] RDW 12.5 11.0 - 15.0 % LAB HEMETOLOGY METHOD 05/25/2025 12:18 PM EDT [facility] Platelets 348 130 - 400 K/mcL LAB HEMETOLOGY METHOD 05/25/2025 12:18 PM EDT [facility] MPV 9.2 7.0 - 11.0 FL LAB HEMETOLOGY METHOD 05/25/2025 12:18 PM EDT [facility] NRBC 0.0 <1.0 % LAB HEMETOLOGY METHOD [facility]2025 [facility] NRBC Absolute 0.00 <0.10 K/mcL LAB HEMETOLOGY METHOD 05/25/2025 12:18 PM [facility] Neutrophils Relative 44.7 % LAB HEMETOLOGY METHOD 05/25/2025 12:18 PM [facility] Lymphocytes Relative 36.6 % LAB HEMETOLOGY METHOD 05/25/2025 12:18 PM [facility] Monocytes Relative 16.5 % LAB HEMETOLOGY METHOD 05/25/2025 12:18 PM [facility] Eosinophils Relative 1.1 % LAB HEMETOLOGY METHOD 05/25/2025 12:18 PM [facility] Basophils Relative 0.8 % LAB HEMETOLOGY METHOD 05/25/2025 12:18 PM [facility] Immature Granulocytes Relative 0.3 % LAB HEMETOLOGY METHOD 05/25/2025 12:18 PM [facility] Neutrophils Absolute 2.76 1.50 - 7.00 K/mcL LAB HEMETOLOGY METHOD 05/25/2025 12:18 PM [facility] Lymphocytes Absolute 2.26 1.00 - 5.00 K/mcL LAB HEMETOLOGY METHOD 05/25/2025 12:18 PM [facility] Monocytes Absolute 1.02(H) 0.20 - 1.00 K/mcL LAB HEMETOLOGY METHOD 05/25/2025 12:18 PM [facility] Eosinophils Absolute 0.07 0.00 - 0.50 K/mcL LAB HEMETOLOGY METHOD 05/25/2025 12:18 PM [facility] Basophils Absolute 0.05 0.00 - 0.20 K/mcL LAB HEMETOLOGY METHOD 05/25/2025 12:18 PM EDT [facility] Immature Granulocytes Absolute 0.02 0.00 - 0.03 K/mcL LAB HEMETOLOGY METHOD 05/25/2025 12:18 PM EDT [facility] Blood Venous blood specimen / Unknown Venipuncture / Unknown 05/25/2025 9:27 AM EDT 05/25/2025 9:27 AM EDT Wanda Wylie MD LAB BLOOD ORDERABLES Final Resul t Performing Organization Address City/[facility]/ZIP Co de Phone Number [facility] [address] [place] [address], * (ABNORMAL) Microalbumin creatinine urine ratio (05/25/2025 9:27 AM EDT) Creatinine, Urine 194.0 mg/dL LAB CHEMISTRY METHOD 05/25/2025 2:19 PM EDT [facility] Microalb, Ur 219.0(H) 0.0 - 29.0 mg/L LAB CHEMISTRY METHOD 05/25/2025 2:19 PM EDT [facility] Microalb/Crea t Ratio 113(H) <30 mg/g creat LAB CHEMISTRY METHOD 05/25/2025 2:19 PM EDT [facility] Urine Urine specimen obtained by clean catch procedure / Unknown Non-blood Collection / Unknown 05/25/2025 9:27 AM EDT 05/25/2025 9:27 AM EDT Acosta BARBER LAB URINE ORDERABLES Anusha l Result [facility] [address] [place] [address], [place] [phone] * Hemoglobin A1c (05/25/2025 9:27 AM EDT) Hemoglobin A1C 5.9 <6.5 % LAB CHEMISTRY METHOD 05/25/2025 1:38 PM EDT [facility] Mean Bld Glu Estim. 123 mg/dL LAB CHEMISTRY METHOD 05/25/2025 1:38 PM EDT [facility] Blood Venous blood specimen / Unknown Venipuncture / Unknown 05/25/2025 9:27 AM EDT 05/25/2025 9:27 AM EDT Acosta BARBER LAB BLOOD ORDERABLES Anusha l Result Performing Organization Address [facility]/ZIP Co de Phone Number [facility] [address] [place] [address], * Valproic acid level, total (05/25/2025 9:27 AM EDT) Pathologist [facility] Valproic Acid, Total 72 50 - 100 mcg/mL LAB CHEMISTRY METHOD 05/25/2025 1:11 PM EDT [facility] Blood Venous blood specimen / Unknown Venipuncture / Unknown 05/25/2025 9:27 AM EDT 05/25/2025 9:27 AM EDT Wanda Wylie MD LAB BLOOD ORDERABLES Final Resul t Performing Organization Address [facility]/ZIP Co de Phone Number [facility] [address] [place] [address], [place] [phone] * (ABNORMAL) Comprehensive metabolic panel (05/25/2025 9:27 AM EDT) Sodium 133 133 - 145 mmol/L LAB CHEMISTRY METHOD 05/25/2025 1:11 PM EDT [facility] Potassium 4.5 3.5 - 5.5 mmol/L LAB CHEMISTRY METHOD 05/25/2025 1:11 PM EDT [facility] Chloride 97 96 - 110 mmol/L LAB CHEMISTRY METHOD 05/25/2025 1:11 PM EDT [facility] CO2 27 21 - 32 mmol/L LAB CHEMISTRY METHOD 05/25/2025 1:11 PM [facility] Anion Gap 9 3 - 11 LAB CHEMISTRY METHOD 05/25/2025 1:11 PM [facility] Glucose 87 70 - 100 mg/dL LAB CHEMISTRY METHOD 05/25/2025 1:11 PM [facility] BUN 11 5 - 25 mg/dL LAB CHEMISTRY METHOD 05/25/2025 1:11 PM [facility] Creatinine 0.98 0.70 - 1.30 mg/dL LAB CHEMISTRY METHOD 05/25/2025 1:11 PM [facility] eGFR 91 >=60 mL/min/1. 73m2 LAB CHEMISTRY METHOD 05/25/2025 1:11 PM [facility] Comment:Calculation based on the Chronic Kidney Disease Epidemiology Collaboration (CKD-EPI) equation refit without adjustment for race. BUN/Creatinine Ratio 11.2 LAB CHEMISTRY METHOD 05/25/2025 1:11 PM [facility] Calcium 9.9 8.5 - 10.5 mg/dL LAB CHEMISTRY METHOD 05/25/2025 1:11 PM [facility] AST (SGOT) 18 10 - 42 unit/L LAB CHEMISTRY METHOD 05/25/2025 1:11 [facility] ALT (SGPT) 15 10 - 60 unit/L LAB CHEMISTRY METHOD 05/25/2025 1:11 PM [facility] Alkaline Phosphatase 28(L) 42 - 121 unit/L LAB CHEMISTRY METHOD 05/25/2025 1:11 PM [facility] Total Protein 7.6 6.0 - 8.0 g/dL LAB CHEMISTRY METHOD 05/25/2025 1:11 PM [facility] Albumin 4.2 3.2 - 5.0 g/dL LAB CHEMISTRY METHOD 05/25/2025 1:11 PM [facility] Total Bilirubin 0.6 0.0 - 1.4 mg/dL LAB CHEMISTRY METHOD 05/25/2025 1:11 PM EDT [facility] Blood Venous blood specimen / Unknown Venipuncture / Unknown 05/25/2025 9:27 AM EDT 05/25/2025 9:27 AM EDT us Wanda Wylie MD LAB BLOOD ORDERABLES Final Resul t [facility] [address] [place] [address], * CT Lung Screening (01/11/2025 2:16 PM [...] Signed Date: 01/16/2025 13:28 ET Workstation ID: [id number] Transcribed By: Self Edit Transcribed Date: 01/16/2025 [...] Signed Date: 01/16/2025 13:28 ET Workstation ID: [id number] Transcribed By: Self Edit Transcribed Date: 01/16/2025 13:21 ET Maninder Curtis MD IMG CT PROCEDURES Final Result * HIV 1,2 antibody, p24 antigen with reflex to differentiation (12/05/2024 12:30 PM EST) [facility] HIV Combo AB/AG Negative Negative LAB CHEMISTRY METHOD 12/05/2024 5:32 PM EST [facility] Blood Venous blood specimen / Unknown Venipuncture / Unknown 12/05/2024 12:30 PM EST 12/05/2024 12:31 PM EST Narrative [facility] - 12/05/2024 5:32 PM EST [...] BARBER LAB BLOOD ORDERABLES Anusha l Result [facility] [address] [place] [address], * Hepatitis C Screening (12/29/2022) [facility] Hepatitis C Screening abstracted Nancy Mccollum MD HEALTH MAINTENANCE Final Result * Colonoscopy (09/14/2019) [facility] Colonoscopy no interpretation , abstracted Anatomical Region Laterality Modality Other Nancy Mccollum MD HEALTH MAINTENANCE Final Result from Last 3 Months or Most Recently Relevant to Health Maintenance Insurance [facility] Member Subscriber Plan / Payer (Ef fective 2018-Present) Name:MARYSHAHEEN KERNS Relation to Subscriber:Self Name:Shaheen Tai Payer ID:[id number] Group ID:[id number] Type:Not on file Address: [place] [address] [address] [address] Care Teams Branch Lead Relationship Specialty Start Date End Date Acosta Pack PA [address] [facility] [place] [address] PCP - General Internal Medicine 12/09/20
== END 2025-08-15 10:28 | disposition home or self-care (01) ==
LOC: HO.HMCFMS 09:41
PROVIDERS: PCP Student in an Organized Health Care Education/Training Program; Visit Provider Student in an Organized Health Care Education/Training Program
DX: J45.20 Mild intermittent asthma, uncomplicated (principal); I73.9 Peripheral vascular disease, unspecified; E11.51 Type 2 diabetes mellitus with diabetic peripheral angiopathy without gangrene; F31.9 Bipolar disorder, unspecified; J30.1 Allergic rhinitis due to pollen; M17.0 Bilateral primary osteoarthritis of knee; M54.50 Low back pain, unspecified; G89.29 Other chronic pain; M25.561 Pain in right knee; M25.562 Pain in left knee; M47.816 Spondylosis without myelopathy or radiculopathy, lumbar region; I10 Essential (primary) hypertension; Z72.0 Tobacco use; E03.9 Hypothyroidism, unspecified; H35.9 Unspecified retinal disorder

== ENCOUNTER → 2025-10-03 11:43 | Outpatient (BNV) | payer OTHER, SELFPAY | PROVIDERS: Emergency Provider Emergency Medicine; Visit Provider Internal Medicine Cardiovascular Disease | DX: Z03.89 Encounter for observation for other suspected diseases and conditions ruled out (principal) | CPT/HCPCS: 93010 ==

== ENCOUNTER → 2025-10-03 13:08 | Outpatient (BNV) | payer OTHER, SELFPAY | PROVIDERS: Emergency Provider Emergency Medicine; Visit Provider Radiology Diagnostic Radiology | DX: I95.0 Idiopathic hypotension (principal) | CPT/HCPCS: 71045 ==

== ENCOUNTER → 2025-10-04 08:16 | Outpatient (BNV) | payer OTHER, SELFPAY | PROVIDERS: Emergency Provider Emergency Medicine; Visit Provider Internal Medicine Cardiovascular Disease | DX: Z13.6 Encounter for screening for cardiovascular disorders (principal) | CPT/HCPCS: 93010 ==

== ENCOUNTER 2025-10-05 16:23 | Outpatient (BNV) | payer OTHER, SELFPAY | END 2025-10-06 22:50 | PROVIDERS: Admitting Provider Nurse Practitioner Psychiatric/Mental Health; Emergency Provider Emergency Medicine; Visit Provider Radiology Diagnostic Radiology | DX: R20.0 Anesthesia of skin (principal); G93.89 Other specified disorders of brain | CPT/HCPCS: 70450 ==

== ENCOUNTER 2025-10-05 16:23 | Outpatient (BNV) | payer OTHER, SELFPAY | END 2025-10-06 22:25 | PROVIDERS: Admitting Provider Nurse Practitioner Psychiatric/Mental Health; Emergency Provider Emergency Medicine; Visit Provider Internal Medicine Cardiovascular Disease | DX: Z03.89 Encounter for observation for other suspected diseases and conditions ruled out (principal) | CPT/HCPCS: 93010 ==

== ENCOUNTER → 2025-10-05 16:23 | Outpatient (BNV) | payer OTHER, SELFPAY | PROVIDERS: Admitting Provider Nurse Practitioner Psychiatric/Mental Health; Emergency Provider Emergency Medicine; Visit Provider Nurse Practitioner Family | DX: E03.9 Hypothyroidism, unspecified (principal) | CPT/HCPCS: 99221; 99499 ==

== ENCOUNTER → 2025-10-05 16:23 | Outpatient (BNV) | payer OTHER, SELFPAY | PROVIDERS: Admitting Provider Nurse Practitioner Psychiatric/Mental Health; Emergency Provider Emergency Medicine; Visit Provider Nurse Practitioner Psychiatric/Mental Health | DX: F25.9 Schizoaffective disorder, unspecified (principal); E11.9 Type 2 diabetes mellitus without complications | CPT/HCPCS: 90792; 99232 ==